=== PATIENT | female | born 1950 | race Caucasian/White ===

== ENCOUNTER 2024-03-18 05:22 | Observation (INO) | payer OTHER ==
[2024-03-14 11:29] LABS: Absolute Eosinophils 0.1 K/uL (0-0.5); Absolute Lymphocytes (CBC) 2.2 K/uL (0.7-4.9); Absolute Monocytes 0.5 K/uL (0.1-1.3); Absolute Neutrophil 3.6 K/uL (1.8-8.0); Basophils % 0.8 % (0-1.3); Eosinophils % 2.1 % (0-4.4); Hematocrit 35.2 % (36.0-45.0); Hemoglobin 11.7 g/dL (12.0-15.0); MCH 30.8 pg (27.0-35.0); MCHC 33.4 g/dL (32.0-36.0); MCV 92.3 fL (80-100); MPV 7.8 fL (7.6-11.3); Monocytes % 7.4 % (3.3-12.3); Neutrophils % 55.7 % (41.7-73.7); Platelets 286 thou/uL (152-406); RBC Red Blood Cell Count 3.81 M/uL (3.86-4.86); Red Cell Distribution Width 12.7 % (12.1-15.2)
[2024-03-14 11:31] LABS: Specific Gravity 1.019 (1.005-1.030); Sqamous Epithelial <5 /HPF (None Seen); Urine Bacteria None Seen /HPF (<20); Urine Bilirubin NEGATIVE (Negative); Urine Blood Negative (Negative); Urine Clarity Turbid (Clear); Urine Color Yellow (Yellow); Urine Culture Reflex Order NOT NEEDED; Urine Glucose NEGATIVE (Negative); Urine Ketones NEGATIVE (Negative); Urine Microscopic Reflex YN ORDER UMIC; Urine Mucus Slight /HPF (None Seen); Urine Nitrite NEGATIVE (Negative); Urine Protein NEGATIVE (Negative); Urine RBC <5 /HPF (None Seen); Urine Urobilinogen Normal (Normal); Urine WBC <5 /HPF (<5); Urine pH 5.5 (5.0-7.0)
[2024-03-14 11:39] LABS: PT Prothrombin Time 11.4 SECONDS (9.4-12.5); PTT, Activated Partial Thromb 29.8 SECONDS (24.3-36.9); Protime INR 1.02
[2024-03-14 11:45] LABS: Albumin 3.7 g/dL (3.4-5.0); Albumin/Globulin Ratio 0.9 (1.1-1.8); Anion Gap 6.7 mEq/L (5.0-15.0); Bilirubin Total 0.7 mg/dL (0.2-1.0); Globulin 4.1 g/dL (2.3-3.5); Potassium 3.7 mEq/L (3.5-5.1); Protein, Total 7.8 g/dL (6.4-8.2)
--- NOTE | 2024-03-14 12:41 | RAD REPORT ---
EXAM DESCRIPTION: RAD - Chest Pa And Lat (2 Views) - 03/14/2024 12:36 pm CLINICAL HISTORY: pre op for knee areplacement Chest pain. COMPARISON: Chest Pa And Lat (2 Views) dated 01/12/2021; Chest Pa And Lat (2 Views) dated 09/14/2017; CHEST SINGLE VIEW dated 12/04/2013; CHEST SINGLE VIEW dated 11/28/2013 TECHNIQUE: PA and lateral views of the chest were obtained. FINDINGS: The lungs are hyperexpanded compatible with COPD. The heart is upper limit of normal in si ze. No fracture or aggressive bony process. Large hiatal hernia. IMPRESSION: COPD without acute process identified. Large hiatal hernia. The USPSTF recommends annual screening for lung cancer with low-dose CT (LDCT) in adults aged 50 to 8 0 years who have a 20 pack-year smoking history and currently smoke or have quit within the past 15 y ears.
[2024-03-18] MEDS: Ringers Lactate 1,000 ML IV ONE ×2 (05:55→08:00)
[2024-03-18] MEDS: Oxycodone HCl/Acetaminophen 5/325 MG TAB ONE (06:00)
[2024-03-18] MEDS: GABAPENTIN 100 MG CAP ONE (06:00)
[2024-03-18] MEDS: ACETAMINOPHEN 500 MG TAB ONE (06:00)
[2024-03-18] MEDS ORDERED: LIDOCAINE 1% MPF 5 ML VIAL ONE ×2 (06:01→06:05)
[2024-03-18] MEDS ORDERED: propofoL 200 MG/20 ML VIAL IV ONE (06:01)
[2024-03-18] MEDS ORDERED: KETAMINE HCL IN 0.9 % NACL 50 MG/5 ML SYRINGE IV ONE (06:01)
[2024-03-18] MEDS ORDERED: MIDAZOLAM HCL 2 MG/2 ML INJ ONE (06:02)
[2024-03-18] MEDS ORDERED: FENTANYL CITR 100 MCG/2 ML ONE (06:02)
[2024-03-18] MEDS: CELECOXIB 100 MG CAPSULE ONE (06:08)
[2024-03-18] MEDS: EPINEPHRINE 1 MG/ML VIAL ONE (06:10)
[2024-03-18] MEDS: dexAMETHasone 4 MG/ML VIAL ONE (06:10)
[2024-03-18] MEDS: DEXMEDETOMIDINE HCL 200 MCG/2 ML VIAL ONE (06:11)
[2024-03-18] MEDS: BUPIVACAINE 0.25% PF 30 ML VIAL ONE (06:11)
[2024-03-18] MEDS: MAGNESIUM SULFATE 1 gm IVPB 1 GM/100 ML BAG IV ONE (06:11)
[2024-03-18] MEDS: TRANEXAMIC ACID 1,000 MG/10 ML VIAL IV ONE (06:12)
[2024-03-18] MEDS ORDERED: LIDOCAINE 2% MPF 5 ML VIAL ONE (07:23)
[2024-03-18] MEDS: CEFAZOLIN SODIUM 2 GM/VIAL ONE (07:25)
[2024-03-18] MEDS ORDERED: ONDANSETRON 4 MG/2 ML VIAL IV PRN (09:30)
[2024-03-18] MEDS ORDERED: DOCUSATE NA 100 MG CAP PO PRN (09:30)
--- NOTE | 2024-03-18 09:34 | P.BOP ---
Preoperative diagnosis: left knee arthritis Postoperative diagnosis: same Primary procedure: left total knee arthoplasty Estimated blood loss: 100ccs Anesthesia: General Complications: None Transferred to: Recovery Room Condition: Good
[2024-03-18 10:29] VITALS: O2SAT 94
--- NOTE | 2024-03-18 10:33 | OP ---
Date of Procedure: 03/18/2024 Surgeon: Praful Washburn MD Preoperative Diagnosis: Severe left knee arthritis. Postoperative Diagnosis: Severe left knee arthritis. Procedure: Left total knee arthroplasty using the [employer] Vangu[employer] system. Estimated Blood Loss: 100 cc. Complications: There were no complications. Indications For Operation: Ms. Munroe is a 73-year-old female who has been suffering with her left k nee for quite some time. She does have a knee flexion contracture as well as severe pain and has not been responsive to conservative care. X-rays demonstrate severe [id number] changes and multiple o steophytes. Risks, benefits, and alternatives to total knee arthroplasty was discussed with the bruno ent. She states she understands things as presented and wishes to proceed. Description Of Procedure: The patient obtained a block in the holding area. She was then brought to the operating room where general anesthesia was easily obtained by the Anesthesia staff. Following this, a well-padded tourniquet placed on superior left thigh. Left lower extremity was then prepped and draped in the usual sterile fashion for procedure. Following this, the lower extremity was then elevated and exsanguinated. Knee was fully bent and tourniquet was raised. After this, a standard a nterior incision was taken down carefully through skin and soft tissues. Meticulous hemostasis being maintained using Bovie electrocautery. This was followed by the finding of the correct plane to exp ose the extensor mechanism. The extensor mechanism was then marked out and a standard medial parapat ellar arthrotomy was then performed with liberation of approximately 20 cc of rather normal-appearing synovial fluid. After this, the patella was then removed and the medial and lateral menisci were de brided. Multiple osteophytes were removed from the patella as well as diffusely throughout the knee. After this, a standard intramedullary alignment guide was then placed. Distal cut was made. It wa s then measured and final femoral cut was made. ACL and PCL being removed. After this, attention wa s then turned to the tibia. She does have a very large on the medial aspect of the knee. The tibia was cut, slightly more tibia was removed than standard. It was then sized using a ___ sizing guide. After this, the trial tibia and femur were then placed with a size 10 poly. It co mes to full extension, however, it is a little bit tight, therefore the tibia was recut another 4 mm, which now comes to full extension without difficulty. Appears to be well balanced and aligned. Aft er this, attention was then turned to the patella. It was calipered and cut. The trial patellar but ton was placed. The patella appears to track ideally. After this, the trial components were removed and the box was cut as well as punching of the tibia. All of the components were then cemented in p lace with the exception of the polyethylene. The trial 12 polyethylene was placed as the cement hard ened. The size 12 actually appeared to do a little better than 10 as far the stability goes with sta bility in both flexion and extension therefore the size 12 was used over the size 10. The wound was copiously irrigated and locking bar was placed. After placement of the final polyethylene, it was ag ain irrigated and the extensor mechanism repaired back in a watertight fashion using Ethibond sutures . It was again irrigated and skin was closed using Vicryl sutures followed by amina. The patient was then placed in a well-padded sterile dressing, awakened, and taken to the recovery room in good c ondition. There were no complications. SE/MODL Voice ID: [id number] Report ID: [id number]
[2024-03-18 11:05] VITALS: BMI 31.8
[2024-03-18] MEDS: HYDROCODONE/APAP 7.5/325 MG TAB PO PRN (12:43)
--- OUTSIDE RECORDS SUMMARY | 2024-03-18 14:42 | XMS REPORT | Continuity of Care Document ---
Author Name Unknown Address [address] [facility] [address] [place] [address] [facility] Address [address] 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 Role Phone Mukesh Stone Primary Care Physician [phone] Maribeth Caal Attending Clinician Unavailable Caesar Newton MD Attending Clinician [phone] KRISTOPHER VELÁZQUEZ Attending Clinician Unavailable RENETTA MEZA Attending Clinician UnavailRENETTA Ko Attending Clinician UnavailKristopher Raygoza MD Attending Clinician [phone] Renetta Meza MD Attending Clinician [phone], [facility] Attending Clinician Unavailable Duane De León Attending Clinician [phone] Doctor Unassigned, [place] Attending Clinician U DUANE Andujar Attending Clinician Unavailable UNKNOWN, ATTENDING Attending Clinician Unavailab Mukesh Harrison Attending Clinician [phone] CHAD MEJIA Attending Clinician Unavailable Chad Mejia MD Attending Clinician [phone] CARIE COY Admitting Clinician Unavailable Payers Payer Name Policy Type Policy Number Effective Date Expirati on Date Source Problems Condition Name Condition Details Condition Category Status Onset Date Resolution Date Last Treatment Date Treating Clinician Comments Source Shortness of breath Shortness of breath Disease Active 08-09 00:00: 00 [facility] Essential hypertensi on Essential hypertensi on Disease Active 08-09 00:00: 00 [facility] Mixed hyperlipid emia Mixed hyperlipid emia Disease Active 08-09 00:00: 00 [facility] Preoperati ve cardiovasc ular examinatio n Preoperati ve cardiovasc ular examinatio n Disease Active 08-07 00:00: 00 [facility] Obesity (BMI 30-39.9) Obesity (BMI 30-39.9) Disease Active 11-01 00:00: 00 [facility] Allergies, Adverse Reactions, Alerts Allergy Name Allergy Type Status Severity Reaction(s) Onset Date Inactive Date Treating Clinician Comments Source NO KNOWN ALLERGIE S Drug Class Active [facility] Social History Social Habit Start Date Stop Date Quantity Comments Source Gender identity [facility] Sexual orientation U [facility] Alcohol intake 2023-08-03 00:00:00 2023-08-03 00:00:00 0 /d [facility] Alcoholic beverage intake 2023-08-03 00:00:00 2023-08-03 00:00:00 0 /d [facility] History of Social function 2023-03-28 00:00:00 2023-03-28 00:00:00 [facility] Exposure to SARS-CoV-2 (event) 2022-12-04 00:00:00 2022-12-14 10:34:00 Not sure [facility] Sex assigned at 1950 00:00:00 1950 00:00:00 [facility] Smoking Status Start Date Stop Date Source Never smoked tobacco [facility] Medications Ordered Medication Name Filled Medication Name Start Date Stop Date Current Medication? Ordering Clinician Indication Dosage Frequency Signature (SIG) Comments Components Source atorvastati n 40 mg tablet 08-09 00:00: 00 Yes [id number] 40mg Take 1 tablet by mouth at bedtime. [facility] losartan 50 mg tablet 08-07 15:37: 14 08-07 00:00 :00 No 50mg Take 1 tablet by mouth in the morning. [facility] losartan-hy drochloroth iazide 100-25 mg per tablet 08-07 15:35: 59 08-07 00:00 :00 No 1{tbl} Take 1 tablet by mouth in the morning. [facility] metoprolol tartrate 50 mg tablet 08-07 15:32: 01 Yes 50mg Take 1 tablet by mouth in the morning. [facility] amLODIPine 5 mg tablet 08-07 15:32: 01 Yes 5mg Take 1 tablet by mouth in the morning and 1 tablet in the evening. [facility] losartan-hy drochloroth iazide 100-25 mg per tablet 08-07 00:00: 00 08-07 05:59 :00 No [id number] 1{tbl} Take 1 tablet by mouth in the morning. [facility] meloxicam 7.5 mg tablet 518 00:00: 00 Yes [id number] 7.5mg Take 1 tablet by mouth in the morning. [facility] methylPREDN ISolone (MEDROL, AWA,) 4 mg tablets 3-16 00:00: 00 Yes [id number] 84mg Take 21 tablets by mouth SEE-INSTRU CTIONS. follow package directions [facility] sodium hyaluronate (viscosup) (ORTHOVISC) injection 30 mg 11-18 14:30: 00 11-18 14:20 :00 No [id number] 9109 30mg [facility] DULoxetine 60 mg capsule 08-12 09:20: 59 Yes 60mg Take 60 mg by mouth daily. [facility] metoprolol tartrate 50 mg tablet 08-12 09:20: 59 Yes 50mg Take 50 mg by mouth 2 (two) times daily. [facility] omeprazole 40 mg capsule 08-12 09:20: 59 Yes 40mg Take 40 mg by mouth daily. [facility] losartan-hy drochloroth iazide 100-25 mg per tablet 1-14 09:20: 59 Yes 1{tbl} Take 1 tablet by mouth daily. [facility] clorazepate 3.75 mg tablet 11-01 14:16: 52 Yes 3.75mg Take 3.75 mg by mouth every 4 (four) hours as needed. [facility] alendronate 70 mg tablet 11-01 00:00: 00 08-07 00:00 :00 No [id number] 70mg Take 1 tablet by mouth weekly. [facility] Vital Signs Vital Name Observation Time Observation Value Comments [facility] Systolic blood pressure 2023-08-07 21:03:00 168 mm[Hg] [facility] Diastolic blood pressure 2023-08-07 21:03:00 81 mm[Hg] [facility] Heart rate 2023-08-07 21:03:00 81 /min [facility] Oxygen saturation in Arterial blood by Pulse oximetry 2023-08-07 21:03:00 94 /min [facility] Body temperature 2023-08-07 21:00:00 36.33 Hetal [facility] Respiratory rate 2023-08-07 21:00:00 20 /min [facility] Body height 2023-08-07 21:00:00 162.6 cm [facility] Body weight 2023-08-07 21:00:00 100.699 kg [facility] BMI 2023-08-07 21:00:00 38.11 kg/m2 [facility] Body height 2023-08-03 16:01:00 162.6 cm [facility] Body weight 2023-08-03 16:01:00 105.688 kg [facility] BMI 2023-08-03 16:01:00 39.99 kg/m2 [facility] Systolic blood pressure 2023-03-28 19:29:00 152 mm[Hg] [facility] Diastolic blood pressure 2023-03-28 19:29:00 77 mm[Hg] [facility] Heart rate 2023-03-28 19:28:00 81 /min [facility] Body height 2023-03-28 19:28:00 167.6 cm [facility] Body weight 2023-03-28 19:28:00 102.059 [address] [facility] BMI 2023-03-28 19:28:00 36.32 kg/m2 [facility] Oxygen saturation in Arterial blood by Pulse oximetry 2023-03-28 19:28:00 96 /min [facility] Systolic blood pressure 2022-12-14 15:55:00 152 mm[Hg] [facility] Diastolic blood pressure 2022-12-14 15:55:00 72 mm[Hg] [facility] Heart rate 2022-12-14 15:55:00 90 /min [facility] Body height 2022-12-14 15:55:00 167.6 cm [facility] Body weight 2022-12-14 15:55:00 105.235 [address] [facility] BMI 2022-12-14 15:55:00 37.45 kg/m2 [facility] Oxygen saturation in Arterial blood by Pulse oximetry 2022-12-14 15:55:00 90 /min [facility] Systolic blood pressure 2022-10-12 16:18:00 133 mm[Hg] [facility] Diastolic blood pressure 2022-10-12 16:18:00 79 mm[Hg] [facility] Heart rate 2022-10-12 16:18:00 84 /min [facility] Body height 2022-10-12 16:18:00 167.6 cm [facility] Body weight 2022-10-12 16:18:00 65.772 [address] [facility] BMI 2022-10-12 16:18:00 23.40 kg/m2 [facility] Systolic blood pressure 2021-11-18 14:19:00 151 mm[Hg] [facility] Diastolic blood pressure 2021-11-18 14:19:00 87 mm[Hg] [facility] Heart rate 2021-11-18 14:19:00 77 /min [facility] Body height 2021-11-18 14:10:00 167.6 cm [facility] Body weight 2021-11-18 14:10:00 101.606 kg [facility] BMI 2021-11-18 14:10:00 36.15 kg/m2 [facility] Oxygen saturation in Arterial blood by Pulse oximetry 2021-11-18 14:10:00 95 /min [facility] Procedures Procedure Date / Time Performed Performing Clinician Source TRANSTHORACIC ECHO (TTE) COMPLETE 2023-08-08 17:49:47 Jennifer [facility] BASIC METABOLIC PANEL (NA, K, CL, CO2, GLUCOSE, BUN, CREATININE, CA) 2023-08-08 17:44:00 Jennifer Kristopher [facility] LIPID PANEL (07623)(TOTAL CHOLESTEROL, TRIGLYCERIDES, HDL) 2023-08-08 17:44:00 Jennifer Kristopher [facility] CBC WITHOUT DIFF 2023-08-08 17:44:00 [facility]-B[facility] 2023-08-08 17:44:00 Jennifer Kristopher [facility] ASSIGNMENT OF BENEFITS 2022-12-14 15:36:46 Docto r Unassigned, [place] [facility] Encounters Start Date/Time End Date/Time Encounter Type Admission Type Attending Clinicians Care Facility Care Department Encounter ID Source 2024-02-22 11:14:[address] [facility] [id number] [facility] 2024-02-20 13:39:00 Outpatient AvocaMaribeth carcamo [facility] [id number] [facility] 2024-02-18 09:48:[address] [facility] [id number] [facility] 2023-12-13 14:43:[address] [facility] [id number] [facility] 2023-12-11 10:16:[address] Caal [facility] [id number] [facility] 2021-08-24 14:26:43 [facility] [id number] [facility] 2024-02-08 00:00:00 2024-02-15 15:30:06 Telephone Caesar Newton [facility] MEDICAL OFFICE BUILDING 1.2.840.114 350.1.13.10 4.2.7.2.686 [id number] [facility] 2023-11-06 10:30:00 2023-11-06 10:30:00 Outpatient KRISTOPHER SIERRA [facility] [id number] [facility] 2023-08-30 11:00:00 2023-08-30 11:00:00 Outpatient RENETTA DANIELS [facility] [id number] [facility] 2023-08-17 00:00:00 2023-08-17 00:00:00 Telephone Velázquez [facility] BUILDING 1.2.840.114 350.1.13.10 4.2.7.2.686 [id number] [facility] 2023-08-16 00:00:00 2023-08-16 00:00:00 [facility] 1..840.114 350.1.13.10 4.2.7.2.686 [id number] [facility] 2023-08-09 00:00:00 2023-08-09 00:00:00 Telephone Jennifer [facility] BUILDING 1.2.840.114 350.1.13.10 4.2.7.2.686 [id number] [facility] 2023-08-08 10:57:05 2023-08-08 23:59:00 Out[facility] [id number] [facility] 2023-08-08 10:57:05 2023-08-08 23:59:00 Hospital Encounter Jennifer [facility]IO NAL BUILDING 1.2.840.114 350.1.13.10 4.2.7.2.686 [id number] [facility] 2023-08-08 13:00:00 2023-08-08 13:00:00 Electrolytic Etcher Visit 2, [facility] Jennifer [facility] NAL BUILDING 1.2.840.114 350.1.13.10 4.2.7.2.686 [id number] [facility] 2023-08-07 15:00:00 2023-08-07 15:46:40 Outpatient R KRISTOPHER VELÁZQUEZ [facility] [id number] [facility] 2023-08-07 15:00:00 2023-08-07 15:46:40 Office Visit Jennifer [facility] BUILDING 1.2.840.114 350.1.13.10 4.2.7.2.686 [id number] [facility] 2023-08-03 10:15:00 2023-08-03 10:30:03 Outpatient R RENETTA MEZA [facility] [id number] [facility] 2023-08-03 10:15:00 2023-08-03 10:30:03 Office Visit Renetta Meza [facility] 1.2.840.114 350.1.13.10 4.2.7.2.686 [id number] [facility] 2023-07-12 13:45:00 2023-07-12 13:45:00 Outpatient R JEREMIAH MEZAMISTY BURKSMEZA, RENETTA [facility] [id number] [facility] 2023-03-30 13:00:00 2023-03-30 13:00:00 Outpatient R KRISTOPHER VELÁZQUEZ [facility] [id number] [facility] 2023-03-28 14:15:00 2023-03-28 14:49:19 Outpatient R RENETTA MEZA [facility] [id number] [facility] 2023-03-28 14:15:00 2023-03-28 14:49:19 Office Visit Renetta Meza [facility] 1.2.840.114 350.1.13.10 4.2.7.2.686 [id number] [facility] 2022-12-14 11:00:00 2022-12-14 11:15:00 Office Visit Duane Starkey Craig [facility] 1.2.840.114 350.1.13.10 4.2.7.2.686 [id number] [facility] 2022-12-14 11:00:00 2022-12-14 11:00:00 Outpatient R RENETTA MEZA [facility] [id number] [facility] 2022-12-14 00:00:00 2022-12-14 00:00:00 Orders Only Doctor Unassigned, [place] [facility] 1.2.840.114 350.1.13.10 4.2.7.2.686 [id number] [facility] 2022-10-12 11:38:06 2022-10-12 23:59:00 Outpatient R DUANE STARKEY [facility] [id number] [facility] 2022-10-12 11:15:00 2022-10-12 11:30:00 Office Visit Starkey, [facility] 1.2.840.114 350.1.13.10 4.2.7.2.686 [id number] [facility] 2022-08-10 10:42:24 2022-08-10 23:59:00 Outpatient MELODY JIMENEZ [facility] [id number] [facility] 2022-07-14 00:00:00 2022-07-14 00:00:00 Telephone Renetta Meza [facility] 1.2.840.114 350.1.13.10 4.2.7.2.686 [id number] [facility] 2021-12-16 00:00:00 2021-12-16 00:00:00 Telephone Renetta Meza [facility] 1.2.840.114 350.1.13.10 4.2.7.2.686 [id number] [facility] 2021-12-02 09:15:00 2021-12-02 09:15:00 Outpatient R RENETTA MEZA [facility] [id number] [facility] 2021-11-18 09:15:00 2021-11-18 09:57:53 Outpatient DUANE JULIEN [facility] [id number] [facility] 2021-11-18 09:15:00 2021-11-18 09:30:00 Office Visit Duane Starkey [facility] 1.2.840.114 350.1.13.10 4.2.7.2.686 [id number] [facility] 2021-11-18 09:15:00 2021-11-18 09:15:00 Outpatient R DUANE STARKEY [facility] [id number] [facility] 2021-11-11 08:45:00 2021-11-11 09:10:58 [facility] 1.2.840.114 350.1.13.10 4.2.7.2.686 [id number] [facility] 2021-11-11 08:45:00 2021-11-11 09:10:58 Outpatient DUANE JULIEN [facility] [id number] [facility] 2021-11-11 08:45:00 2021-11-11 08:45:00 Outpatient DUANE JULIEN [facility] [id number] [facility] 2021-11-03 08:00:00 2021-11-03 08:28:49 Outpatient DUANE JULIEN [facility] [id number] [facility] 2021-11-03 08:00:00 2021-11-03 08:28:49 Office Visit Clarence [facility] [place]?[facility] MEDICAL OFFICE BUILDING 1..840.114 350.1.13.10 4.2.7.2.686 [id number] [facility] 2021-11-03 08:00:00 2021-11-03 08:28:49 Outpatient DUANE JULIEN [facility] [id number] [facility] 2021-11-01 14:15:00 2021-11-01 14:15:00 Outpatient DUANE JULIEN [facility] [id number] [facility] 2021-10-24 00:00:00 2021-10-24 00:00:00 Telephone Clarence [facility] [place] 1.2.840.114 350.1.13.10 4.2.7.2.686 [id number] [facility] 2021-10-24 00:00:00 2021-10-24 00:00:00 Telephone [facility] [place] 1.840.114 350.1.13.10 4.2.7.2.686 [id number] [facility] 2021-10-12 14:15:00 2021-10-12 14:54:34 Outpatient R RENETTA MEZA [facility] [id number] [facility] 2021-10-12 14:15:00 2021-10-12 14:54:34 Office Visit Renetta Meza [facility] MED[facility] OFFICE BUILDING 1.84.114 350.1.13.10 4.2.7.2.686 [id number] [facility] 2021-10-12 00:00:00 2021-10-12 00:00:00 Orders Only Doctor Unassigned, [place] [facility] 1.84.114 350.1.13.10 4.2.7.2.686 [id number] [facility] 2021-08-12 09:30:00 2021-08-12 23:59:00 Outpatient R RENETTA MEZA [facility] [id number] [facility] 2021-08-12 09:30:00 2021-08-12 23:59:00 [facility] 1.840.114 350.1.13.10 4.2.7.2.686 [id number] [facility] 2021-08-12 09:30:00 2021-08-12 09:59:31 Office Visit Renetta Meza [facility] [place] 1.84.114 350.1.13.10 4.2.7.2.686 [id number] [facility] 2021-08-12 09:30:00 2021-08-12 09:30:00 Outpatient R RENETTA MEZA [facility] [id number] [facility] 2021-08-12 00:00:00 2021-08-12 00:00:00 Orders Only Doctor Unassigned, [place] [facility] 1.2.840.114 350.1.13.10 4.2.7.2.686 [id number] [facility] 2021-07-29 00:00:00 2021-07-29 00:00:00 Letter (Out) Mukesh Stone [facility] 1.2.840.114 350.1.13.10 4.2.7.2.686 [id number] [facility] 2021-07-20 00:00:00 2021-07-20 00:00:00 Orders Only Doctor Unassigned, [place] [facility] 1.2.840.114 350.1.13.10 4.2.7.2.686 [id number] [facility] 2019-11-11 09:30:00 2019-11-11 09:30:00 Outpatient R [facility] [id number] [facility] 2019-11-11 07:54:23 2019-11-11 08:24:23 Telemedici ne Visit [facility] 1.2.840.114 350.1.13.10 4.2.7.2.686 [id number] [facility] 2019-11-11 00:00:00 2019-11-11 00:00:00 Telephone [facility] 1.2.840.114 350.1.13.10 4.2.7.2.686 [id number] [facility] Results Test Description Test Time Test Comments Results Result Co mments Source [facility] Notes Date/Time Note Provider Source 2024-02-08 13:13:36 [facility] sent referral to Dr. Newton sent to HIM [facility] 2023-08-17 16:49:00 Images from the original note were not included. Patient notified of results. She verbalized understanding of results/recommendations via teach back. No further questions or concerns at this time. Kristopher Velázquez MD P Cardiology Nurse Please let Ms.Shelia Munroe know that I have reviewed the results of the echo which showed normal systolic (aka pumping) function of the heart. The pressure in the pulmonary artery is mildly elevated. No specific intervention is needed as of now. I see that she has an appointment with me on 11/06/2023, we'll discuss further management after re-evaluation. MILL OPERATOR Tiffany Mcnally RN [facility] 2023-08-17 13:26:54 Bertha Munroe is a 73 year old female Patient returning call to Cheri, please advise. MILL OPERATOR Shania Zaidi [facility] 2023-08-17 13:20:25 Images from the original note were not included. Attempted to contact patient with results/recommendations. LV for patient to return call to [phone]. Kristopher Velázquez MD P Cardiology Nurse Please let Ms.Shelia Munroe know that I have reviewed the results of the echo which showed normal systolic (aka pumping) function of the heart. The pressure in the pulmonary artery is mildly elevated. No specific intervention is needed as of now. I see that she has an appointment with me on 11/06/2023, we'll discuss further management after re-evaluation. MILL OPERATOR [facility] 2023-08-16 10:10:29 Sent an email to Karrie to let her know she wanted to cancel her surgery at this time. Charlene Farah 08/16/2023 10:10 AM [facility] 2023-08-16 09:21:38 Patient is requesting to cancel her surgery that is scheduled on 08/29/2023. She is not able to do it at this time. [facility] 2023-08-09 10:43:39 Images from the original note were not included. Called patient for results patient verbalized understanding with no further questions will send the atorvastatin to in [place] for the patient. Kristopher Velázquez MD P Cardiology Nurse Please let Ms. Bertha Munroe know that the cholesterol level is elevated. I recommend starting a cholesterol lowering medicine (atorvastatin 40 mg daily). Serum calcium is also elevated (a chronic abnormality), please discuss this finding with your PCP. [facility] 2023-08-08 13:00:00 Images from the original note were not included. Venipuncture collection performed by clean technique on the left anticubitus. Total of 1 attempts were made. Slight pressure and a bandage/dressing were applied to the site(s). The patient experienced no complications. The following specimens were processed according to instructions and sent to [facility] laboratories per lab order on 08/08/2023 : LT BLUE SST 1 RED LAV 1 PPT DK GREEN (LiHep) DK GREEN (SodH) HILL DK BLUE (K2) DK BLUE (S) ACD Blood Culture NIPT/NTD [facility] 2023-08-08 13:00:00 Addended by: KRISTOPHER MORROW on: 08/09/2023 09:21 AM Modules accepted: Orders [facility]
[2024-03-18] MEDS: CEFAZOLIN 1 GM in NA CHLORIDE 0.9% 50 ML IVPB SCH (18:27)
[2024-03-18] MEDS: AMLODIPINE 5 MG TAB PO SCH (20:58)
[2024-03-18] MEDS: clonazePAM 0.5 MG TAB PO SCH (20:58)
[2024-03-18] MEDS: METOPROLOL TAR 50 MG TAB PO SCH (20:59)
[2024-03-19 05:40] LABS: Hematocrit 30.3 % (36.0-45.0); Hemoglobin 10.4 g/dL (12.0-15.0)
[2024-03-19] MEDS: ENOXAPARIN 30 MG/0.3 ML SQ SCH (06:48)
--- NOTE | 2024-03-19 08:09 | P.PN ---
Date of Service: 03/19/24 subjective Status post left total knee arthroplasty 03/18 pain controlled with as needed analgesics, PT to eval for DME needs Review of Systems 10 point system negative unless listed per HPI Physical Examination - Physical Exam General: Alert, In no apparent distress, afebrile HEENT: Atraumatic, Normocephalic Neck: Supple, 2+ carotid pulse no bruit Respiratory: Clear to auscultation bilaterally, Normal air movement Cardiovascular: Normal pulses, Regular rate/rhythm Capillary refill: <2 Seconds Gastrointestinal: Normal bowel sounds, Musculoskeletal: No swelling, No contractures Integumentary: No breakdown, No significant lesion Neurological: Normal speech, Normal strength at 5/5 x4 extr, Cranial nerves 3-12 intact Assessment and Plan - Plan Past medical history Hypertension Anxiety Resume appropriate home meds Assessment plan left total knee arthoplasty Arthritis the left knee 03/18 Status post left total knee [place] Full code diet Diabetic DVT scd Dispostion, independent prior to admission, PT to eval DME needs Discharge Plan: Home - Advance Directives Does patient have a Living Will: No Does patient have a Durable POA for Healthcare: No - Code Status/Comfort Care Code Status: Full Code Critical Care: No Time Spent Managing Pts Care (In Minutes): 35
--- NOTE | 2024-03-19 08:13 | P.DS ---
Admission Date: 03/18/24 Discharge Date: 03/19/24 Disposition: DC HOME/HOME HEALTH CARE Brief History of Present Illness: 73-year-old female with a past medical history of anxiety, hypertension, presents for left knee osteoarthritis, is status post left total knee arthroplasty by Dr. Washburn. Evaluated by physical therapy for DME needs, she is tolerating diet, pain controlled with as needed analgesia, plan to discharge home, follow-up with orthopedic surgery after discharge, follow-up with PCP 1 to 2-week - Physical Exam General: Alert, In no apparent distress, afebrile HEENT: Atraumatic, Normocephalic Neck: Supple, 2+ carotid pulse no bruit Respiratory: Clear to auscultation bilaterally, Normal air movement Cardiovascular: Normal pulses, Regular rate/rhythm Capillary refill: <2 Seconds Gastrointestinal: Normal bowel sounds, Musculoskeletal: No swelling, No contractures, arthritis left knee Integumentary: No breakdown, No significant lesion Neurological: Normal speech, Normal strength at 5/5 x4 extr, Cranial nerves 3-12 intact Hospital Course: 73-year-old female with a past medical history of anxiety, hypertension, presents for left knee osteoarthritis, is status post left total knee arthroplasty by Dr. Washburn. Evaluated by physical therapy for DME needs, she is tolerating diet, pain controlled with as needed analgesia, plan to discharge home, follow-up with orthopedic surgery after discharge, follow-up with PCP 1 to 2-week, discharged home with home health Assessment presents for left knee osteoarthritis, 03/18 status post left total knee arthroplasty by Dr. Washburn. No driving or operating heavy equipment while on narcotics Follow-up with Dr. Washburn after discharge Discharge home on anticoagulation Lovenox daily for 21 days to prevent DVT Anxiety, hypertension Continue home medicines as previously prescribed GOAL: Clear understanding of disease process INSTRUCTIONS: Physician Discharge Instructions: -Follow-up with PCP in 1 to 2 weeks -Please call Dr. Brewer at [phone] if any questions regarding hospital stay -Please call nursing station at [phone] if any nursing or medication questions -Return to the emergency room if symptoms worsen Diet: ADA, low sodium Activity: Fall precaution Vital Signs/Physical Exam: Temp Pulse Resp BP Pulse Ox 96.9 F 70 16 126/68 93 03/19/24 04:00 03/19/24 04:00 03/19/24 04:00 03/19/24 04:00 03/19/24 04:00 Laboratory Data at Discharge: WBC 6.50 thou/uL (4.3-10.9) 03/14/24 11:18 Hgb 10.4 g/dL (12.0-15.0) L 03/19/24 05:04 Hct 30.3 % (36.0-45.0) L 03/19/24 05:04 Plt Count 286 thou/uL (152-406) 03/14/24 11:18 PT 11.4 SECONDS (9.4-12.5) 03/14/24 11:18 INR 1.02 03/14/24 11:18 APTT 29.8 SECONDS (24.3-36.9) 03/14/24 11:18 Sodium 137 mEq/L (136-145) 03/14/24 11:18 Potassium 3.7 mEq/L (3.5-5.1) 03/14/24 11:18 BUN 23 mg/dL (7-18) H 03/14/24 11:18 Creatinine 1.21 mg/dL (0.55-1.02) H 03/14/24 11:18 Glucose 109 mg/dL (74-106) H 03/14/24 11:18 Total Bilirubin 0.7 mg/dL (0.2-1.0) 03/14/24 11:18 AST 13 U/L (15-37) L 03/14/24 11:18 ALT 25 U/L (13-56) 03/14/24 11:18 Alkaline Phosphatase 72 U/L (45-117) 03/14/24 11:18 Home Medications: Duloxetine HCl [Cymbalta] 60 mg PO DAILY 11/28/13 Metoprolol Tartrate [Lopressor*] 50 mg PO BID 11/28/13 Omeprazole [Prilosec] 40 mg PO DAILY 11/28/13 Amlodipine [Norvasc] 5 mg PO BID 03/14/24 Losartan Potassium 25 mg PO DAILY 03/14/24 clonazePAM [Clonazepam] 0.5 mg PO BEDTIME 03/14/24 Physician Discharge Instructions: Home health arranged with: [facility]) M:[phone] [place] P:[phone] F:[phone] Diet: AHA Activity: Fall precautions Followup: Danna Waldrop MD [Primary Care Provider] - Time spent managing pt's care (in minutes): 45
[2024-03-19] MEDS ORDERED: HOME MED 1 EA UNK (Omeprazole [Prilosec] 40 MG Capsule.Dr) PO SCH (09:00)
[2024-03-19] MEDS ORDERED: HOME MED 1 EA UNK (Losartan Potassium [Losartan Potassium] 25 MG Tablet) PO SCH (09:00)
[2024-03-19] MEDS ORDERED: HOME MED 1 EA UNK (Duloxetine Hcl [Cymbalta] 60 MG Capsule.Dr) PO SCH (09:00)
[2024-03-19] MEDS: DULOXETINE 30 MG CAP PO SCH (09:57)
[2024-03-19] MEDS: LOSARTAN POTASSIUM 50 MG TABLET PO SCH (09:57)
[2024-03-19] MEDS: PANTOPRAZOLE 40MG TABLET PO SCH (10:14)
[2024-03-19 12:27] VITALS: BP 120/63; TEMP 97.7
--- NOTE | 2024-03-19 17:04 | EKG ---
Test Date: 2024-03-14 Test Time: 11:12:43 Denture Finisher: NATHEN MEASUREMENT RESULTS: Intervals: Rate: 61 WA: 174 QRSD: 114 QT: 400 QTc: 402 [place]: P: 52 WA: 174 QRS: 23 T: 20 INTERPRETIVE STATEMENTS: Normal sinus rhythm Normal ECG Compared to ECG 11/28/2013 09:55:38 No significant changes Electronically Signed On 03-19-24 16:59:47 CDT by Jamey Roca
== END 2024-03-19 13:37 | disposition home health service (06) ==
LOC: OR 05:22 → 2ND 09:30
PROVIDERS: ADMIT Orthopaedic Surgery; ATTEND Orthopaedic Surgery
PROC: 0SRD0J9 Replacement of Left Knee Joint with Synthetic Substitute, Cemented, Open Approach (ICD-10-PCS; principal; 2024-03-18 07:00)
DX: M17.12 Unilateral primary osteoarthritis, left knee (principal); F41.9 Anxiety disorder, unspecified; I10 Essential (primary) hypertension
CPT/HCPCS: 93005; 85025; 81001; 36415 ×2; 85610; 88305; 88311; 85730; 85018; 85014; 80053; 71046; 97116 ×4; 97139; 97161; 97530 ×2; 94010; 27447; C1776 ×3; J3475; J2704; J1100; J2001 ×3; J1650; J2250; J3010; J0171; J7120 ×2; J0690 ×3; 88304; G0378; G0379

== ENCOUNTER 2025-04-21 12:18 | Inpatient (IN) | payer OTHER ==
--- OUTSIDE RECORDS SUMMARY | 2025-04-21 12:23 | XMS REPORT | Continuity of Care Document ---
Author Name Unknown Address [address] [place] [address]. [address] [place] [address] [facility] Address [address] [facility]. [address] [place] [address] Care Team Providers Care Lamp Cleaner [address] Light Name Role Phone Mukesh Stone Primary Care Physician [phone] Maribeth Caal Attending Clinician Unavailable Caesar Newton MD Attending Clinician [phone] KRISTOPHER VELÁZQUEZ Attending Clinician Unavailable RENETTA MEZA Attending Clinician UnavailRENETTA Ko Attending Clinician UnavailKristopher Raygoza MD Attending Clinician [phone] Renetta Meza MD Attending Clinician [phone], [facility] Attending Clinician Unavailable Duane De León Attending Clinician [phone] Doctor Unassigned, [place] Attending Clinician U DUANE Andujar Attending Clinician Unavailable UNKNOWN, ATTENDING Attending Clinician Unavailab Mukesh Harrison Attending Clinician [phone] CHAD MEJIA Attending Clinician Unavailable Chad Mejia MD Attending Clinician [phone] CARIE COY Admitting Clinician Unavailable Payers Payer Name Policy Type Policy Number Effective Date Expirati on Date Source Problems Condition Name Condition Details Condition Category Status Onset Date Resolution Date Last Treatment Date Treating Clinician Comments Source Shortness of breath Shortness of breath Disease Active 08-09 00:00: 00 [facility] Essential hypertensi on Essential hypertensi on Disease Active 08-09 00:00: 00 [facility] Mixed hyperlipid emia Mixed hyperlipid emia Disease Active 08-09 00:00: 00 [facility] Preoperati ve cardiovasc ular examinatio n Preoperati ve cardiovasc ular examinatio n Disease Active 08-07 00:00: 00 [facility] Obesity (BMI 30-39.9) Obesity (BMI 30-39.9) Disease Active 11-01 00:00: 00 [facility] Allergies, Adverse Reactions, Alerts Allergy Name Allergy Type Status Severity Reaction(s) Onset Date Inactive Date Treating Clinician Comments Source NO KNOWN ALLERGIE S Drug Class Active [facility] Social History Social Habit Start Date Stop Date Quantity Comments Source Gender identity [facility] Sexual orientation U [facility] Alcohol intake 2023-08-03 00:00:00 2023-08-03 00:00:00 0 /d [facility] Alcoholic beverage intake 2023-08-03 00:00:00 2023-08-03 00:00:00 0 /d [facility] History of Social function 2023-03-28 00:00:00 2023-03-28 00:00:00 [facility] Exposure to SARS-CoV-2 (event) 2022-12-04 00:00:00 2022-12-14 10:34:00 Not sure [facility] Sex assigned at 1950 00:00:00 1950 00:00:00 [facility] Smoking Status Start Date Stop Date Source Never smoked tobacco [facility] Medications Ordered Medication Name Filled Medication Name Start Date Stop Date Current Medication? Ordering Clinician Indication Dosage Frequency Signature (SIG) Comments Components Source atorvastati n 40 mg tablet 08-09 00:00: 00 Yes [id number] 40mg Take 1 tablet by mouth at bedtime. [facility] losartan 50 mg tablet 08-07 15:37: 14 08-07 00:00 :00 No 50mg Take 1 tablet by mouth in the morning. [facility] losartan-hy drochloroth iazide 100-25 mg per tablet 08-07 15:35: 59 08-07 00:00 :00 No 1{tbl} Take 1 tablet by mouth in the morning. [facility] metoprolol tartrate 50 mg tablet 08-07 15:32: 01 Yes 50mg Take 1 tablet by mouth in the morning. [facility] amLODIPine 5 mg tablet 08-07 15:32: 01 Yes 5mg Take 1 tablet by mouth in the morning and 1 tablet in the evening. [facility] losartan-hy drochloroth iazide 100-25 mg per tablet 08-07 00:00: 00 08-07 05:59 :00 No [id number] 1{tbl} Take 1 tablet by mouth in the morning. [facility] meloxicam 7.5 mg tablet 518 00:00: 00 Yes [id number] 7.5mg Take 1 tablet by mouth in the morning. [facility] methylPREDN ISolone (MEDROL, AWA,) 4 mg tablets 3-16 00:00: 00 Yes [id number] 84mg Take 21 tablets by mouth SEE-INSTRU CTIONS. follow package directions [facility] sodium hyaluronate (viscosup) (ORTHOVISC) injection 30 mg 11-18 14:30: 00 11-18 14:20 :00 No [id number] 9109 30mg [facility] DULoxetine 60 mg capsule 08-12 09:20: 59 Yes 60mg Take 60 mg by mouth daily. [facility] metoprolol tartrate 50 mg tablet 08-12 09:20: 59 Yes 50mg Take 50 mg by mouth 2 (two) times daily. [facility] omeprazole 40 mg capsule 08-12 09:20: 59 Yes 40mg Take 40 mg by mouth daily. [facility] losartan-hy drochloroth iazide 100-25 mg per tablet 1-14 09:20: 59 Yes 1{tbl} Take 1 tablet by mouth daily. [facility] clorazepate 3.75 mg tablet 11-01 14:16: 52 Yes 3.75mg Take 3.75 mg by mouth every 4 (four) hours as needed. [facility] alendronate 70 mg tablet 11-01 00:00: 00 08-07 00:00 :00 No [id number] 70mg Take 1 tablet by mouth weekly. [facility] Vital Signs Vital Name Observation Time Observation Value Comments [facility] Systolic blood pressure 2023-08-07 21:03:00 168 mm[Hg] [facility] Diastolic blood pressure 2023-08-07 21:03:00 81 mm[Hg] [facility] Heart rate 2023-08-07 21:03:00 81 /min [facility] Oxygen saturation in Arterial blood by Pulse oximetry 2023-08-07 21:03:00 94 /min [facility] Body temperature 2023-08-07 21:00:00 36.33 Hetal [facility] Respiratory rate 2023-08-07 21:00:00 20 /min [facility] Body height 2023-08-07 21:00:00 162.6 cm [facility] Body weight 2023-08-07 21:00:00 100.699 kg [facility] BMI 2023-08-07 21:00:00 38.11 kg/m2 [facility] Body height 2023-08-03 16:01:00 162.6 cm [facility] Body weight 2023-08-03 16:01:00 105.688 kg [facility] BMI 2023-08-03 16:01:00 39.99 kg/m2 [facility] Systolic blood pressure 2023-03-28 19:29:00 152 mm[Hg] [facility] Diastolic blood pressure 2023-03-28 19:29:00 77 mm[Hg] [facility] Heart rate 2023-03-28 19:28:00 81 /min [facility] Body height 2023-03-28 19:28:00 167.6 cm [facility] Body weight 2023-03-28 19:28:00 102.059 kg [facility] BMI 2023-03-28 19:28:00 36.32 kg/m2 [facility] Oxygen saturation in Arterial blood by Pulse oximetry 2023-03-28 19:28:00 96 /min [facility] Systolic blood pressure 2022-12-14 15:55:00 152 mm[Hg] [facility] Diastolic blood pressure 2022-12-14 15:55:00 72 mm[Hg] [facility] Heart rate 2022-12-14 15:55:00 90 /min [facility] Body height 2022-12-14 15:55:00 167.6 cm [facility] Body weight 2022-12-14 15:55:00 105.235 kg [facility] BMI 2022-12-14 15:55:00 37.45 kg/m2 [facility] Oxygen saturation in Arterial blood by Pulse oximetry 2022-12-14 15:55:00 90 /min [facility] Systolic blood pressure 2022-10-12 16:18:00 133 mm[Hg] [facility] Diastolic blood pressure 2022-10-12 16:18:00 79 mm[Hg] [facility] Heart rate 2022-10-12 16:18:00 84 /min [facility] Body height 2022-10-12 16:18:00 167.6 cm [facility] Body weight 2022-10-12 16:18:00 65.772 kg [facility] BMI 2022-10-12 16:18:00 23.40 kg/m2 [facility] Systolic blood pressure 2021-11-18 14:19:00 151 mm[Hg] [facility] Diastolic blood pressure 2021-11-18 14:19:00 87 mm[Hg] [facility] Heart rate 2021-11-18 14:19:00 77 /min [facility] Body height 2021-11-18 14:10:00 167.6 cm [facility] Body weight 2021-11-18 14:10:00 101.606 kg [facility] BMI 2021-11-18 14:10:00 36.15 kg/m2 [facility] Oxygen saturation in Arterial blood by Pulse oximetry 2021-11-18 14:10:00 95 /min Arp o [facility] Procedures Procedure Date / Time Performed Performing Clinician Source TRANSTHORACIC ECHO (TTE) COMPLETE 2023-08-08 17:49:47 [facility] BASIC METABOLIC PANEL (NA, K, CL, CO2, GLUCOSE, BUN, CREATININE, CA) 2023-08-08 17:44:00 Jennifer [facility] LIPID PANEL (55144)(TOTAL CHOLESTEROL, TRIGLYCERIDES, HDL) 2023-08-08 17:44:00 Jennifer Kristopher [facility] CBC WITHOUT DIFF 2023-08-08 17:44:00 [facility]-BNP 2023-08-08 17:44:00 Jennifer Kristopher [facility] ASSIGNMENT OF BENEFITS 2022-12-14 15:36:46 Docto r Unassigned, [place] [facility] Encounters Start Date/Time End Date/Time Encounter Type Admission Type Attending Clinicians Care Facility Care Department Encounter ID Source 2024-02-22 11:14:[address] [facility] [id number] [facility] 2024-02-20 13:39:[address] [facility] [id number] [facility] 2024-02-18 09:48:[address] [facility] [id number] [facility] 2023-12-13 14:43:[address] [facility] [id number] [facility] 2023-12-11 10:16:00 [facility] [id number] [facility] 2021-08-24 14:26:43 [facility] [id number] [facility] 2024-02-08 00:00:00 2024-02-15 15:30:06 Telephone Caesar Newton [facility] 1.2.840.114 350.1.13.10 4.2.7.2.686 [id number] [facility] 2023-11-06 10:30:00 2023-11-06 10:30:00 [facility] [id number] [facility] 2023-08-30 11:00:00 2023-08-30 11:00:00 Outpatient RENETTA DANIELS [facility] [id number] [facility] 2023-08-17 00:00:00 2023-08-17 00:00:00 Telephone Jennifer [facility] 1.2.840.114 350.1.13.10 4.2.7.2.686 [id number] [facility] 2023-08-16 00:00:00 2023-08-16 00:00:00 [facility] 1..840.114 350.1.13.10 4.2.7.2.686 [id number] [facility] 2023-08-09 00:00:00 2023-08-09 00:00:00 [facility] 1..840.114 350.1.13.10 4.2.7.2.686 [id number] [facility] 2023-08-08 10:57:05 2023-08-08 23:59:00 Out[facility] [id number] [facility] 2023-08-08 10:57:05 2023-08-08 23:59:00 Hospital [facility] 1.2.840.114 350.1.13.10 4.2.7.2.686 [id number] [facility] 2023-08-08 13:00:00 2023-08-08 13:00:00 Outside Upholsterer Visit 2, [facility] Jennifer [facility] NAL BUILDING 1.2.840.114 350.1.13.10 4.2.7.2.686 [id number] [facility] 2023-08-07 15:00:00 2023-08-07 15:46:40 Outpatient R [facility] [id number] [facility] 2023-08-07 15:00:00 2023-08-07 15:46:40 Office Visit Jennifer [facility] BUILDING 1.2.840.114 350.1.13.10 4.2.7.2.686 [id number] [facility] 2023-08-03 10:15:00 2023-08-03 10:30:03 Outpatient R RENETTA MEZA [facility] [id number] [facility] 2023-08-03 10:15:00 2023-08-03 10:30:03 Office Visit Renetta Meza [facility] 1.2.840.114 350.1.13.10 4.2.7.2.686 [id number] [facility] 2023-07-12 13:45:00 2023-07-12 13:45:00 Outpatient R MEZAJEREMIAH ROLONMISTY BURKSMEZA, RENETTA [facility] [id number] [facility] 2023-03-30 13:00:00 2023-03-30 13:00:00 Outpatient R KRISTOPHER VELÁZQUEZ [facility] [id number] [facility] 2023-03-28 14:15:00 2023-03-28 14:49:19 Outpatient R RENETTA MEZA [facility] [id number] [facility] 2023-03-28 14:15:00 2023-03-28 14:49:19 Office Visit Renetta Meza Ricki [facility] 1.2.840.114 350.1.13.10 4.2.7.2.686 [id number] [facility] 2022-12-14 11:00:00 2022-12-14 11:15:00 Office Visit Duane Starkey Craig [facility] 1.2.840.114 350.1.13.10 4.2.7.2.686 [id number] [facility] 2022-12-14 11:00:00 2022-12-14 11:00:00 Outpatient R RENETTA MEZA [facility] [id number] [facility] 2022-12-14 00:00:00 2022-12-14 00:00:00 Orders Only Doctor Unassigned, [place] [facility] 1.2.840.114 350.1.13.10 4.2.7.2.686 [id number] [facility] 2022-10-12 11:38:06 2022-10-12 23:59:00 Outpatient R DUANE STARKEY [facility] [id number] [facility] 2022-10-12 11:15:00 2022-10-12 11:30:00 [facility] 1.2.840.114 350.1.13.10 4.2.7.2.686 [id number] [facility] 2022-08-10 10:42:24 2022-08-10 23:59:00 Outpatient MELODY JIMENEZ [facility] [id number] [facility] 2022-07-14 00:00:00 2022-07-14 00:00:00 Telephone [facility] [place] 1.2.840.114 350.1.13.10 4.2.7.2.686 [id number] [facility] 2021-12-16 00:00:00 2021-12-16 00:00:00 Telephone Renetta Me[facility] [place] BU[facility] 1.2.840.114 350.1.13.10 4.2.7.2.686 [id number] [facility] 2021-12-02 09:15:00 2021-12-02 09:15:00 Outpatient R RENETTA MEZA [facility] [id number] [facility] 2021-11-18 09:15:00 2021-11-18 09:57:53 Outpatient DUANE JULIEN [facility] [id number] [facility] 2021-11-18 09:15:00 2021-11-18 09:30:00 Office Visit Duane Starkey [facility] 1.2.840.114 350.1.13.10 4.2.7.2.686 [id number] [facility] 2021-11-18 09:15:00 2021-11-18 09:15:00 Outpatient R DUANE STARKEY [facility] [id number] [facility] 2021-11-11 08:45:00 2021-11-11 09:10:58 [facility] 1.2.840.114 350.1.13.10 4.2.7.2.686 [id number] [facility] 2021-11-11 08:45:00 2021-11-11 09:10:58 Outpatient DUANE JULIEN [facility] [id number] [facility] 2021-11-11 08:45:00 2021-11-11 08:45:00 Outpatient DUANE JULIEN [facility] [id number] [facility] 2021-11-03 08:00:00 2021-11-03 08:28:49 Outpatient DUANE JULIEN [facility] [id number] [facility] 2021-11-03 08:00:00 2021-11-03 08:28:49 Office Visit [facility] [place]?[facility] MED[facility] OFFICE BUILDING 1.2.840.114 350.1.13.10 4.2.7.2.686 [id number] [facility] 2021-11-03 08:00:00 2021-11-03 08:28:49 Outpatient DUANE JULIEN [facility] [id number] [facility] 2021-11-01 14:15:00 2021-11-01 14:15:00 Outpatient DUANE JULIEN [facility] [id number] [facility] 2021-10-24 00:00:00 2021-10-24 00:00:00 Telephone [facility] [place] 1.2.840.114 350.1.13.10 4.2.7.2.686 [id number] [facility] 2021-10-24 00:00:00 2021-10-24 00:00:00 [facility] 1.2840.114 350.1.13.10 4.2.7.2.686 [id number] [facility] 2021-10-12 14:15:00 2021-10-12 14:54:34 Outpatient R RENETTA MEZA [facility] [id number] [facility] 2021-10-12 14:15:00 2021-10-12 14:54:34 Office Visit Renetta Meza [facility] OFF[facility] BUILD[facility] 1.84.114 350.1.13.10 4.2.7.2.686 [id number] [facility] 2021-10-12 00:00:00 2021-10-12 00:00:00 Orders Only Doctor Unassigned, [place] [facility] 1.840.114 350.1.13.10 4.2.7.2.686 [id number] [facility] 2021-08-12 09:30:00 2021-08-12 23:59:00 Outpatient R RENETTA MEZA [facility] [id number] [facility] 2021-08-12 09:30:00 2021-08-12 23:59:00 Hospital Encounter Renetta Meza [facility] 1.840.114 350.1.13.10 4.2.7.2.686 [id number] [facility] 2021-08-12 09:30:00 2021-08-12 09:59:31 Office Visit Renetta Meza [facility] 1.840.114 350.1.13.10 4.2.7.2.686 [id number] [facility] 2021-08-12 09:30:00 2021-08-12 09:30:00 Outpatient R RENETTA MEZA [facility] [id number] [facility] 2021-08-12 00:00:00 2021-08-12 00:00:00 Orders Only Doctor Unassigned, [place] [facility] 1.2.840.114 350.1.13.10 4.2.7.2.686 [id number] [facility] 2021-07-29 00:00:00 2021-07-29 00:00:00 Letter (Out) Mukesh Stone [facility] 1.2.840.114 350.1.13.10 4.2.7.2.686 [id number] [facility] 2021-07-20 00:00:00 2021-07-20 00:00:00 Orders Only Doctor Unassigned, [place] [facility] 1.2.840.114 350.1.13.10 4.2.7.2.686 [id number] [facility] 2019-11-11 09:30:00 2019-11-11 09:30:[address] [facility] [id number] [facility] 2019-11-11 07:54:23 2019-11-11 08:24:23 Telemedici ne Visit [facility] 1.2.840.114 350.1.13.10 4.2.7.2.686 [id number] [facility] 2019-11-11 00:00:00 2019-11-11 00:00:00 Telephone [facility] 1.2.840.114 350.1.13.10 4.2.7.2.686 [id number] [facility] Results Test Description Test Time Test Comments Results Result Co mments Source [facility] Notes Date/Time Note Provider Source 2024-02-08 13:13:36 [facility] sent referral to Dr. Newton sent to HIM [facility] 2023-08-17 16:49:00 Images from the original note [...] 11/06/2023, we'll discuss further management after re-evaluation. NG MACHINE OPERATOR ELECTRONIC Tiffany Mcnally RN [facility] 2023-08-17 13:26:54 Bertha Munroe is a 73 year old female Patient returning call to Cheri, aleks advise. NG MACHINE OPERATOR ELECTRONIC Shania Zaidi [facility] 2023-08-17 13:20:25 Images from the original note were not included. Attempted to contact patient with results/recommendations. LV for patient to return call to [phone]. Kristopher Velázquez MD P Cardiology Nurse Please [...] 11/06/2023, we'll discuss further management after re-evaluation. NG MACHINE OPERATOR ELECTRONIC [facility] 2023-08-16 10:10:29 Sent an email to Karrie to let her know she wanted to cancel her surgery at this time. Charlene Farah 08/16/2023 10:10 AM [facility] 2023-08-16 09:21:38 Patient is requesting to cancel her surgery that is scheduled on 08/29/2023. She is not able to do it at this time. [facility] 2023-08-09 10:43:39 Images from the original note were not included. Called patient for results patient verbalized understanding with no further questions will send the atorvastatin to in [place] for the patient. Kristopher Velázquez MD P Cardiology Nurse Please let Ms. Bertha Munroe know that the cholesterol level is elevated. I recommend starting a cholesterol lowering medicine (atorvastatin 40 mg daily). Serum calcium is also elevated (a chronic abnormality), please discuss this finding with your PCP. [facility] 2023-08-08 13:00:00 Images from the original note were not included. Venipuncture collection performed by clean technique on the left anticubitus. Total of 1 attempts were made. Slight pressure and a bandage/dressing were applied to the site(s). The patient experienced no complications. The following specimens were processed according to instructions and sent to [facility] laboratories per lab order on 08/08/2023 : LT BLUE SST 1 RED LAV 1 PPT DK GREEN (LiHep) DK GREEN (SodH) HILL DK BLUE (K2) DK BLUE (S) ACD Blood Culture NIPT/NTD [facility] 2023-08-08 13:00:00 Addended by: KRISTOPHER MORROW on: 08/09/2023 09:21 AM Modules accepted: Orders [facility]
--- NOTE | 2025-04-21 13:50 | RAD REPORT ---
EXAMINATION: ONE VIEW CHEST XR CLINICAL INDICATION: ABDOMINAL DISTENTION TECHNIQUE: Frontal chest projection is submitted. Examination is limited by patient positioning and t echnique. COMPARISON: 03/14/2024 FINDINGS: The lungs are well inflated and clear. The heart is upper limit of normal in size. No displaced fract ures identified. Moderate hiatal hernia. IMPRESSION: No acute intrathoracic abnormalities.
[2025-04-21 14:27] LABS: Absolute Lymphocytes (CBC) 1.7 K/uL (0.7-4.9); Hematocrit 23.8 % (36.0-45.0); Hemoglobin 7.7 g/dL (12.0-15.0); MCH 24.7 pg (27.0-35.0); MCHC 32.5 g/dL (32.0-36.0); MCV 76.0 fL (80-100); MPV 7.4 fL (7.6-11.3); Nucleated RBC Absolute Count 0.0 (0-0); Nucleated Red Blood Cells % 0.1 % (0-0); RBC Red Blood Cell Count 3.13 M/uL (3.86-4.86); White Blood Count 5.00 thou/uL (4.3-10.9)
[2025-04-21 14:30] LABS: Sqamous Epithelial <5 /HPF (None Seen); Urine Culture Reflex Order NOT NEEDED; Urine Microscopic Reflex YN ORDER UMIC
[2025-04-21 14:33] LABS: PT Prothrombin Time 12.8 SECONDS (10-13.0); Protime INR 1.14
[2025-04-21 14:55] LABS: ALT/SGPT 51.0 U/L (13-56); AST/SGOT 32.0 U/L (15-37); Albumin 3.1 g/dL (3.4-5.0); Albumin/Globulin Ratio 0.8 (1.1-1.8); Alkaline Phosphatase 142.0 U/L (45-117); Anion Gap 9.6 mEq/L (5.0-15.0); BUN Blood Urea Nitrogen 21.0 mg/dL (7-18); Bilirubin Indirect, Calculated 0.4 mg/dL (0.2-0.8); Globulin 4.1 g/dL (2.3-3.5); Glucose Level 108.0 mg/dL (74-106); Lipase 30.0 U/L (13-75); Magnesium 1.9 mg/dL (1.6-2.4); NT PRO-BNP 256.0 pg/mL (<450); Potassium 3.6 mEq/L (3.5-5.1); Troponin High Sensitivity 10.6 pg/mL (<58.9)
[2025-04-21] MEDS ORDERED: NA CHLORIDE 0.9% 1,000 ML ONE (15:38)
[2025-04-21] MEDS ORDERED: PANTOPRAZOLE 40 MG INJ ONE (16:17)
[2025-04-21] MEDS ORDERED: NA CHLORIDE 0.9% 100 ML ONE (16:17)
--- NOTE | 2025-04-21 18:26 | ER ---
Nurse's Notes [facility] Name: Bertha Munroe Age: 75 yrs Sex: Female : 1950 Arrival Date: 04/21/2025 Time: 12:18 Bed 16 Private MD: Diagnosis: Acute posthemorrhagic anemia-upper gi;GI Bleed/ Gastrointestinal hemorrhage, unspecified-upprt;Anemia, unspecified Presentation: 04/21 12:47 Chief complaint: Patient states: Fatigue black BM, feeling thirsty, SOB with exertion ll1 since Sunday. Dr Stone office sent her in for further evaluation. No fever. Coronavirus screen: Client denies travel out of the [place] in the last 14 days. At this time, the client does not indicate any symptoms associated with coronavirus-19. Ebola Screen: Patient denies travel to an Ebola-affected area in the 21 days before illness onset. Initial Sepsis Screen: Does the patient meet any 2 criteria? No. Patient's initial sepsis screen is negative. Does the patient have a suspected source of infection? No. Patient's initial sepsis screen is negative. Risk Assessment: Do you want to hurt yourself or someone else? Patient reports no desire to harm self or others. Onset of symptoms was April 18, 2025. 12:47 Method Of Arrival: Ambulatory ll1 12:47 Acuity: HA 3 ll1 Triage Assessment: 15:00 General: Appears in no apparent distress. Behavior is calm, cooperative, appropriate bp for age. Pain: Denies pain. EENT: No deficits noted. Neuro: No deficits noted. Cardiovascular: Rhythm is sinus rhythm. Respiratory: No deficits noted. GI: Reports bloody stool. : No signs and/or symptoms were reported regarding the genitourinary system. Derm: Skin is pale. Musculoskeletal: No deficits noted. Historical: - Allergies: 12:30 No Known Allergies; ll1 - PMHx: 12:30 Hypertensive disorder; Hypercholesterolemia; ll1 - Immunization history:: Adult Immunizations up to date. - Infectious Disease History:: Denies. - Social history:: Smoking status: Patient denies any tobacco usage or history of. Screenin:44 [facility] ED Fall Risk Assessment (Adult) History of falling in the last 3 months, bp including since admission No falls in past 3 months (0 pts) Confusion or Disorientation No (0 pts) Intoxicated or Sedated No (0 pts) Impaired Gait No (0 pts) Mobility Assist Device Used No (0 pt) Altered Elimination No (0 pt) Score/Fall Risk Level 0 - 2 = Low Risk Oriented to surroundings. Abuse screen: Denies threats or abuse. Denies injuries from another. Nutritional screening: No deficits noted. Tuberculosis screening: No symptoms or risk factors identified. Assessment: 15:00 General: SEE TRIAGE NOTE. bp 16:44 Reassessment: Patient appears in no apparent distress at this time. Patient is alert, bp oriented x 3, equal unlabored respirations, skin warm/dry/pink. 22:40 General: Report given to BHUPINDER gramajo, Blood hand off done with BHUPINDER Gramajo. Consent on kd4 the chart with all document sent to floor. Patient taking to unit by this RN.. 22:47 General: Protonix handoff done with BHUPINDER Gramajo. kd4 Vital Signs: 12:47 BP 151 / 83; Pulse 81; Resp 17; Temp 97.4; Pulse Ox 97% ; Weight 86.64 kg; Height 5 ft. ll1 6 in. ; Pain 0/10; 16:41 BP 159 / 61; Pulse 86; Resp 16; Pulse Ox 100% ; bp 18:30 BP 183 / 82; Pulse 86; Resp 15; Pulse Ox 99% ; bp 20:26 BP 182 / 88; Pulse 98; Resp 19; Temp 98.1; Pulse Ox 98% on R/A; Pain 0/10; kd4 12:47 Body Mass Index 30.83 (86.64 kg, 167.64 cm) ll1 12:47 Pain Scale: Adult ll1 20:26 Pain Scale: Adult kd4 Millen Coma Score: 20:26 Eye Response: spontaneous(4). Motor Response: obeys commands(6). Verbal Response: kd4 oriented(5). Total: 15. ED Course: 12:22 Patient arrived in ED. mr 12:30 Arm band placed on. ll1 12:49 Triage completed. ll1 12:52 Sami Hassan MD is Attending Physician. josh 13:47 XRAY Chest (1 view) In Process Unspecified. EDMS 14:53 Aubrey Marshall, RN is Primary Nurse. bp 15:33 EKG done, by fingerprint technician. reviewed by Sami Hassan MD. ts3 15:33 Initial lab(s) drawn, by ED staff, sent to lab. Inserted saline lock: 22 gauge in right ts3 wrist, using aseptic technique. Blood collected. Flushed with 10 mL NS. 16:44 Patient has correct armband on for positive identification. bp 18:24 Sami Hassan MD is Hospitalizing Provider. josh 18:24 Ray Florian MD is Hospitalizing Provider. josh 20:00 Client placed on continuous cardiac and pulse oximetry monitoring. NIBP monitoring kd4 applied. teletypesetter monitor on. Pulse ox on. NIBP on. 20:52 Inserted saline lock: 20 gauge in left antecubital area, using aseptic technique. kd4 22:45 Provided Education on: NEED FOR DMISSION. kd4 22:45 No provider procedures requiring assistance completed. Patient admitted, IV remains in kd4 place. Administered Medications: 15:48 Drug: NS 0.9% IV 500 ml 500 ml IV at 1 bolus once; to be given as a bolus over 30 bp minutes Volume: 500 ml; Route: IV; Rate: 1 bolus; Site: right antecubital; 15:49 Drug: NS 0.9% IV 1000 ml IV at 125 ml/hr once Route: IV; Rate: 125 ml/hr; Site: right bp antecubital; 16:41 Drug: Pantoprazole IVP 80 mg IVP once Route: IVP; Site: right antecubital; bp 16:41 Drug: Pantoprazole IV 8 mg/hr IV at 25 ml/hr continuous; (Standard dilution is 80 mg in bp 250 mL NS) Route: IV; Rate: 25 ml/hr; Site: right antecubital; Medication: 16:44 VIS not applicable for this client. bp Outcome: 18:25 Decision to Hospitalize by Provider. josh 22:45 Admitted to Tele accompanied by nurse, via stretcher, room 223, with chart, kd4 22:45 Condition: stable 22:45 Instructed on the need for admit, 22:46 Patient left the ED. kd4 Signatures: Dispatcher [employer] EDMS Sami Hassan MD MD cha Rivera, Mary, Reg Reg Aubrey Sofia, RN RN bp Hermes Verde RN RN 1 Mayank Corbin RN RN kd4 Quin Caldwell ts3
--- NOTE | 2025-04-21 18:26 | EDPHYS ---
Physician Documentation [facility] Name: Bertha Munroe Age: 75 yrs Sex: Female : 1950 Arrival Date: 04/21/2025 Time: 12:18 Bed 16 Private MD: ED Physician Sami Hassan HPI: 04/21 18:20 This 75 yrs old Female presents to ER via Ambulatory with complaints of josh Bloody Stools. 18:20 The patient presents to the emergency department with rectal bleeding, melena, with josh multiple such episodes. Onset: The symptoms/episode began/occurred yesterday. Abdominal pain: none is appreciated. Modifying factors: The symptoms are alleviated by nothing, the symptoms are aggravated by nothing. weak , no hx gi bleed, with melena. Associated signs and symptoms: Pertinent positives: weak. Severity of symptoms: At their worst the symptoms were moderate in the emergency department the symptoms are unchanged. The patient has not experienced similar symptoms in the past. Historical: - Allergies: 12:30 No Known Allergies; ll1 - PMHx: 12:30 Hypertensive disorder; Hypercholesterolemia; ll1 - Immunization history:: Adult Immunizations up to date. - Infectious Disease History:: Denies. - Social history:: Smoking status: Patient denies any tobacco usage or history of. ROS: 18:21 Constitutional: Negative for fever, chills, and weight loss, Eyes: Negative for injury, josh pain, redness, and discharge, ENT: Negative for injury, pain, and discharge, Neck: Negative for injury, pain, and swelling, Cardiovascular: Negative for chest pain, palpitations, and edema, Respiratory: Negative for shortness of breath, cough, wheezing, and pleuritic chest pain, Back: Negative for injury and pain, : Negative for injury, bleeding, discharge, and swelling, MS/Extremity: Negative for injury and deformity, Neuro: Negative for headache, weakness, numbness, tingling, and seizure, Psych: Negative for depression, anxiety, suicide ideation, homicidal ideation, and hallucinations, Allergy/Immunology: Negative for hives, rash, and allergies, Endocrine: Negative for neck swelling, polydipsia, polyuria, polyphagia, and marked weight changes, Hematologic/Lymphatic: Negative for swollen nodes, abnormal bleeding, and unusual bruising, 18:21 Abdomen/GI: Positive for nausea, abdominal cramps, black/tarry stool, 18:21 Skin: Positive for pallor, Exam: 18:21 Constitutional: This is a well developed, well nourished patient who is awake, alert, josh and in no acute distress. Head/Face: Normocephalic, atraumatic. Eyes: Pupils equal round and reactive to light, extra-ocular motions intact. Lids and lashes normal. Conjunctiva and sclera are non-icteric and not injected. Cornea within normal limits. Periorbital areas with no swelling, redness, or edema. ENT: Nares patent. No nasal discharge, no septal abnormalities noted. Tympanic membranes are normal and external auditory canals are clear. Oropharynx with no redness, swelling, or masses, exudates, or evidence of obstruction, uvula midline. Mucous membranes moist. Neck: Trachea midline, no thyromegaly or masses palpated, and no cervical lymphadenopathy. Supple, full range of motion without nuchal rigidity, or vertebral point tenderness. No Meningismus. Chest/axilla: Normal chest wall appearance and motion. Nontender with no deformity. No lesions are appreciated. Cardiovascular: Regular rate and rhythm with a normal S1 and S2. No gallops, murmurs, or rubs. Normal PMI, no JVD. No pulse deficits. Respiratory: Lungs have equal breath sounds bilaterally, clear to auscultation and percussion. No rales, rhonchi or wheezes noted. No increased work of breathing, no retractions or nasal flaring. Back: No spinal tenderness. No costovertebral tenderness. Full range of motion. Female : Normal external genitalia. MS/ Extremity: Pulses equal, no cyanosis. Neurovascular intact. Full, normal range of motion., bilateral aka Neuro: Awake and alert, GCS 15, oriented to person, place, time, and situation. Cranial nerves II-XII grossly intact. Motor strength 5/5 in all extremities. Sensory grossly intact. Cerebellar exam normal. Normal gait. Psych: Awake, alert, with orientation to person, place and time. Behavior, mood, and affect are within normal limits. 18:21 ECG was reviewed by the Attending Physician. 18:21 Abdomen/GI: Inspection: abdomen appears normal, Bowel sounds: normal, Palpation: abdomen is soft and non-tender, Rectal exam: the exam is deferred, black , tarry, sticky, Vital Signs: 12:47 BP 151 / 83; Pulse 81; Resp 17; Temp 97.4; Pulse Ox 97% ; Weight 86.64 kg; Height 5 ft. ll1 6 in. ; Pain 0/10; 16:41 BP 159 / 61; Pulse 86; Resp 16; Pulse Ox 100% ; bp 18:30 BP 183 / 82; Pulse 86; Resp 15; Pulse Ox 99% ; bp 20:26 BP 182 / 88; Pulse 98; Resp 19; Temp 98.1; Pulse Ox 98% on R/A; Pain 0/10; kd4 12:47 Body Mass Index 30.83 (86.64 kg, 167.64 cm) ll1 12:47 Pain Scale: Adult ll1 20:26 Pain Scale: Adult kd4 Syed Coma Score: 20:26 Eye Response: spontaneous(4). Motor Response: obeys commands(6). Verbal Response: kd4 oriented(5). Total: 15. MDM: 12:52 Medical Screening Exam initiated josh 18:22 Differential diagnosis: gastritis, diverticulitis, hemorrhoids, hemorrhagic shock, josh varices. Data reviewed: vital signs, nurses notes, lab test result(s), EKG, radiologic studies, CT scan. Consideration of Admission/Observation Patient was admitted/placed on observation. Escalation of care including admission/observation considered. I considered the following discharge prescriptions or medication management in the emergency department Medications were administered in the Emergency Department. See MAR. Independent interpretation of the following test(s) in the Emergency Department EKG: See my EKG interpretation above. Test considered but Not performed: Ultrasound no abd usg. Historians other than the Patient: Family Member: family well informed, son. Care significantly affected by the following chronic conditions: Hypertension, high chlesterol. Counseling: I had a detailed discussion with the patient and/or guardian regarding the historical points, exam findings, and any diagnostic results supporting the discharge/admit diagnosis, lab results, radiology results, the need for further work-up and treatment in the hospital. 04/21 12:59 Order name: Basic Metabolic Panel; Complete Time: 18:06 [facility] 04/21 12:59 Order name: CBC with Diff; Complete Time: 18:06 [facility] 04/21 12:59 Order name: LFT's; Complete Time: 18:06 [facility] 04/21 12:59 Order name: Magnesium; Complete Time: 18:06 [facility] 04/21 12:59 Order name: NT PRO-BNP; Complete Time: 18:06 [facility] 04/21 12:59 Order name: PT-INR; Complete Time: 18:06 [facility] 04/21 12:59 Order name: Troponin HS; Complete Time: 18:06 [facility] 04/21 12:59 Order name: Lipase; Complete Time: 18:06 [facility] 04/21 12:59 Order name: Type And Screen [facility] 04/21 12:59 Order name: UA Rfx Ghassan Cult if indicated; Complete Time: 18:06 [facility] 04/21 18:18 Order name: Bb Add On ss 04/21 18:24 Order name: Packed RBCs (Additional Unit) [facility] 04/21 18:46 Order name: ABO/RH no charge [facility] 04/21 19:20 Order name: CBC with Automated Diff [facility] 04/21 19:20 Order name: CBC with Automated Diff [facility] 04/21 19:20 Order name: Comprehensive Metabolic Panel [facility] 04/21 19:20 Order name: Comprehensive Metabolic Panel [facility] 04/21 12:59 Order name: XRAY Chest (1 view); Complete Time: 18:06 [facility] 04/21 12:59 Order name: EKG; Complete Time: 13:00 [facility] 04/21 19:20 Order name: CONS Physician Consult [facility] 04/21 12:59 Order name: Cardiac monitoring; Complete Time: 15:33 [facility] 04/21 12:59 Order name: EKG - Nurse/Tech; Complete Time: 15:33 [facility] 04/21 12:59 Order name: IV Saline Lock; Complete Time: 15:16 [facility] 04/21 12:59 Order name: Labs collected and sent; Complete Time: 15:16 [facility] 04/21 12:59 Order name: O2 Per Protocol; Complete Time: 15:36 [facility] 04/21 12:59 Order name: O2 Sat Monitoring; Complete Time: 15:33 [facility] 04/21 12:59 Order name: IV Saline Lock - Large Bore; Complete Time: 15:36 [facility] 04/21 18:11 Order name: Transfuse [facility] 04/21 18:20 Order name: Misc. Order: please collect ABO/RH verification; Complete Time: 18:36 ss EC:21 Rate is 73 beats/min. Rhythm is regular. QRS Buena is Normal. LA interval is normal. QRS josh interval is normal. QT interval is normal. No Q waves. T waves are Normal. No ST changes noted. Clinical impression: Normal ECG and No evidence of ischemia. Interpreted by me. Reviewed by me. Administered Medications: 15:48 Drug: NS 0.9% IV 500 ml 500 ml IV at 1 bolus once; to be given as a bolus over 30 bp minutes Volume: 500 ml; Route: IV; Rate: 1 bolus; Site: right antecubital; 15:49 Drug: NS 0.9% IV 1000 ml IV at 125 ml/hr once Route: IV; Rate: 125 ml/hr; Site: right bp antecubital; 16:41 Drug: Pantoprazole IVP 80 mg IVP once Route: IVP; Site: right antecubital; bp 16:41 Drug: Pantoprazole IV 8 mg/hr IV at 25 ml/hr continuous; (Standard dilution is 80 mg in bp 250 mL NS) Route: IV; Rate: 25 ml/hr; Site: right antecubital; Disposition Summary: 04/21/25 18:25 Hospitalization Ordered Notes: Hospitalization Status: Inpatient Admission josh Provider: Ray Florian cha Condition: Fair josh Problem: new josh Symptoms: have improved josh Bed/Room Type: Standard josh Location: Telemetry/MedSurg (Inpatient)(04/21/25 20:17) Room Assignment: 223(04/21/25 20:17) Diagnosis - Acute posthemorrhagic anemia - upper gi josh - GI Bleed/ Gastrointestinal hemorrhage, unspecified - upprt josh - Anemia, unspecified josh Forms: - Medication Reconciliation Form josh - SBAR form josh - Leadership Thank You Letter josh Signatures: Dispatcher [employer] EDAshley Hernanedz RN RN kl Anderson, Corey, MD MD cha Blanchard, Shelby, RN RN ss Peltier, Brian, RN RN bp Lewis, Lynsay, RN RN [facility] She Grimaldo 1 Corrections: (The following items were deleted from the chart) 13:00 13:00 BASIC METABOLIC PANEL+C.LAB.BRZ ordered. EDMS EDMS 13:00 13:00 CBC+H.LAB.BRZ ordered. EDMS EDMS 13:00 13:00 HEPATIC FUNCTION+C.LAB.BRZ ordered. EDMS EDMS 13:00 13:00 MAGNESIUM+C.LAB.BRZ ordered. EDMS EDMS 13:00 13:00 PROBNP+C.LAB.BRZ ordered. EDMS EDMS 13: 13:00 PROTIME (+INR)+COAG.LAB.BRZ ordered. EDMS EDMS 13: 13:00 Troponin High Sensitivity+C.LAB.BRZ ordered. EDMS EDMS 13: 13:00 LIPASE+C.LAB.BRZ ordered. EDMS EDMS : 13:00 TYPE AND SCREEN+BB.LAB.BRZ ordered. EDMS EDMS 13: 13:00 UA Rfx Ghassan Cult if indicated+U.LAB.BRZ ordered. EDMS EDMS 18:42 18:11 PACKED RBC LEUKORED+BB.LAB.BRZ ordered. EDMS EDMS 18:42 18:13 ABO/RH typing ordered. EDMS EDMS 18:42 18:13 Antibody Screen ordered. EDMS EDMS 19:36 18:25 Telemetry/MedSurg (Inpatient) josh rv1 19:36 18:25 josh rv1 20:17 19:36 [facility] ER HOLD rv1 kl 20:17 19:36 ERHOLD- rv1 kl
--- NOTE | 2025-04-21 19:14 | P.HP ---
Certification for Inpatient Patient admitted to: Inpatient With expected LOS: >2 Midnights Practitioner: I am a practitioner with admitting privileges, knowledge of patient current condition, hospital course, and medical plan of care. Services: Services provided to patient in accordance with Admission requirements found in Title 42 Section 412.3 of the Code of Federal Regulations Patient History Date of Service: 04/21/25 Reason for admission: GI Bleeding History of Present Illness: 75 yrs old Female presents to ER via Ambulatory with complaints of josh Bloody Stools. 18:20 The patient presents to the emergency department with rectal bleeding, melena, with josh multiple such episodes. Onset: The symptoms/episode began/occurred yesterday. Abdominal pain: none is appreciated. Modifying factors: The symptoms are alleviated by nothing, the symptoms are aggravated by nothing. weak , no hx gi bleed, with melena. Associated signs and symptoms: Pertinent positives: weak. Severity of symptoms: At their worst the symptoms were moderate in the emergency department the symptoms are unchanged. The patient has not experienced similar symptoms in the past. Historical: - Allergies: 12:30 No Known Allergies; ll1 - PMHx: 12:30 Hypertensive disorder; Hypercholesterolemia Allergies No Known Allergies Allergy (Verified 03/18/24 06:59) Home medications list reviewed: Yes Home Medications: Duloxetine HCl [Cymbalta] 60 mg PO DAILY 11/28/13 Metoprolol Tartrate [Lopressor*] 50 mg PO BID 11/28/13 Omeprazole [Prilosec] 40 mg PO DAILY 11/28/13 Amlodipine [Norvasc*] 5 mg PO BID 03/14/24 Losartan Potassium 25 mg PO DAILY 03/14/24 clonazePAM [Clonazepam] 0.5 mg PO BEDTIME 03/14/24 Hydrocodone 7.5/APAP 325 [[place] 7.5/325 mg*] 1 tab PO Q4H PRN #30 tab 03/19/24 Rivaroxaban [Xarelto] 10 mg PO DAILY #20 tab 03/19/24 - Past Medical/Surgical History Diabetic: No Past Medical History: Reviewed- Non-Contributory -: HTN -: Osteoarthritis -: Chronic Kidney Disease -: Anxiety -: Depression Past Surgical History: Reviewed- Non-Contributory -: hysterectomy -: gallbladder -: foot sx - Family History Father -: Heart disease - Social History Smoking Status: Never smoker Alcohol use: Yes CD- Drugs: No Caffeine use: Yes Review of Systems 10-point ROS is otherwise unremarkable Physical Examination - Vital Signs Temperature: 97.8 F Blood Pressure: 176/78 Pulse: 86 Respirations: 18 Pulse Ox (%): 94 - Physical Exam General: Alert, In no apparent distress, Oriented x3 HEENT: Atraumatic, PERRLA Neck: Supple Respiratory: Clear to auscultation bilaterally, Normal air movement Cardiovascular: Regular rate/rhythm, Normal S1 S2 Capillary refill: <2 Seconds Gastrointestinal: Soft and benign, W/out hepatosplenomegaly Musculoskeletal: No clubbing, No swelling Integumentary: No rashes Neurological: Normal gait, Normal speech, Normal strength at 5/5 x4 extr, Sensation intact, Cranial nerves 3-12 intact, Normal affect Lymphatics: No axilla or inguinal lymphadenopathy - Studies Laboratory Data (last 24 hrs) 04/21/25 04/21/25 04/21/25 14:09 14:09 14:09 WBC 5.00 Hgb 7.7 L Hct 23.8 L Plt Count 322 PT 12.8 INR 1.14 Sodium 140 Potassium 3.6 BUN 21 H Creatinine 1.05 H Glucose 108 H Magnesium 1.9 Total Bilirubin 0.6 AST 32 ALT 51 Alkaline Phosphatase 142 H Lipase 30 Assessment and Plan - Plan GI bleed Complaints of melena Monitor vital signs closely Pressors as needed Will start on Protonix drip GI consulted Acute blood loss anemia Monitor H&H serially Transfuse as needed Hypertension Antihypertensives titrated Continue home medications and titrate as needed Hyperlipidemia Continue statin GI/DVT prophylaxis Advanced directive full code Discharge Plan: Home Plan to discharge in: 48 Hours - Advance Directives Does patient have a Living Will: No Does patient have a Durable POA for Healthcare: No - Code Status/Comfort Care Code Status: Full Code Time Spent Managing Pts Care (In Minutes): 48
[2025-04-21] MEDS ORDERED: ACETAMINOPHEN 325 MG TABLET PO PRN (19:15)
[2025-04-21] MEDS ORDERED: ONDANSETRON 4 MG/2 ML VIAL IV PRN (19:15)
[2025-04-21] MEDS: PANTOPRAZOLE INJ 80 MG in NA CHLORIDE 0.9% 250 ML IV SCH (20:00)
[2025-04-21] MEDS: ACETAMINOPHEN 325 MG TABLET PO ONE (22:48)
[2025-04-21] MEDS: DIPHENHYDRAMINE 50 MG/ML VIAL IV ONE (22:48)
[2025-04-21] MEDS: NA CHLORIDE 0.9% 1,000 ML IV SCH (23:32)
[2025-04-21] MEDS: PANTOPRAZOLE 40 MG INJ ONE (23:33)
[2025-04-21] MEDS: NA CHLORIDE 0.9% 250 ML ONE (23:33)
[2025-04-22 06:27] LABS: Absolute Lymphocytes (CBC) 1.7 K/uL (0.7-4.9); Hematocrit 26.6 % (36.0-45.0); Hemoglobin 8.9 g/dL (12.0-15.0); MCH 26.2 pg (27.0-35.0); MCHC 33.6 g/dL (32.0-36.0); MCV 78.0 fL (80-100); MPV 7.1 fL (7.6-11.3); Nucleated RBC Absolute Count 0.0 (0-0); Nucleated Red Blood Cells % 0.1 % (0-0); RBC Red Blood Cell Count 3.40 M/uL (3.86-4.86); White Blood Count 4.20 thou/uL (4.3-10.9)
[2025-04-22 06:46] LABS: ALT/SGPT 41.0 U/L (13-56); AST/SGOT 20.0 U/L (15-37); Albumin 2.8 g/dL (3.4-5.0); Albumin/Globulin Ratio 0.8 (1.1-1.8); Alkaline Phosphatase 119.0 U/L (45-117); Anion Gap 10.3 mEq/L (5.0-15.0); BUN Blood Urea Nitrogen 12.0 mg/dL (7-18); Globulin 3.6 g/dL (2.3-3.5); Glucose Level 99.0 mg/dL (74-106); Potassium 3.3 mEq/L (3.5-5.1)
[2025-04-22] MEDS: LOSARTAN POTASSIUM 50 MG TABLET PO SCH (09:00)
[2025-04-22] MEDS: POTASSIUM CL SA 10 MEQ TAB PO ONE (09:00)
[2025-04-22] MEDS: DULOXETINE 30 MG CAP PO SCH (09:00)
[2025-04-22] MEDS: METOPROLOL TAR 50 MG TAB PO SCH (09:00)
[2025-04-22] MEDS: clonazePAM 0.5 MG TAB PO SCH (09:00)
[2025-04-22] MEDS: AMLODIPINE 5 MG TAB PO SCH (09:00)
--- NOTE | 2025-04-22 09:23 | P.PN ---
Subjective Date of Service: 04/22/25 Chief Complaint: GI Bleeding Subjective: No new changes (Patient is NPO for endoscopic evaluation.) Physical Examination - Vital Signs Temperature: 99.3 F Blood Pressure: 176/74 Pulse: 100 Respirations: 22 Pulse Ox (%): 92 - Physical Exam General: In no apparent distress, Cooperative, Obese HEENT: Atraumatic, Normocephalic Respiratory: Clear to auscultation bilaterally, Normal air movement Cardiovascular: No edema, Normal pulses, Regular rate/rhythm, Normal S1 S2 Gastrointestinal: Soft and benign, Non-distended Neurological: Normal speech - Studies Laboratory Data (last 24 hrs) 04/21/25 04/21/25 04/21/25 14:09 14:09 14:09 WBC 5.00 Hgb 7.7 L Hct 23.8 L Plt Count 322 PT 12.8 INR 1.14 Sodium 140 Potassium 3.6 BUN 21 H Creatinine 1.05 H Glucose 108 H Magnesium 1.9 Total Bilirubin 0.6 AST 32 ALT 51 Alkaline Phosphatase 142 H Lipase 30 Assessment And Plan - Plan Assessment Patient is a 75-year-old female who presented to the hospital with melenic stools. She takes Advil occasionally for chronic back pain. Patient arrived in the ER with a hemoglobin of 7.7. Hemoglobin is currently 8.9 after blood transfusion. She is hemodynamically stable. Gastroenterology has been consulted. Upper GI bleeding Acute blood loss anemia Hypertension Hyperlipidemia Obesity Plan: Peptic ulcer disease in the differential Hold NSAIDs and antiplatelets She denies use of anticoagulation. She might have been placed on Xarelto 1 year ago after knee replacement. She denies current use She is status post blood transfusion N.p.o. for endoscopic evaluation PPI infusion Dr. Diallo has been [facility] As needed IV hydralazine for hypertension
[2025-04-22] MEDS: HYDRALAZINE HCL 20 MG/ML VIAL IV PRN (09:35)
[2025-04-22] MEDS: PANTOPRAZOLE INJ 80 MG in NA CHLORIDE 0.9% 250 ML IV SCH (09:35)
[2025-04-22] MEDS ORDERED: LIDOCAINE 1% MPF 30 ML VIAL ONE (11:36)
[2025-04-22] MEDS: NA CHLORIDE 0.9% 1,000 ML ONE (11:47)
[2025-04-22] MEDS: NA CHLORIDE 0.9% 500 ML ONE (11:51)
[2025-04-22 12:54] VITALS: O2SAT 96
[2025-04-22] MEDS: MAGNESIUM CITRATE 300 ML BOT PO SCH (13:00)
--- NOTE | 2025-04-22 13:22 | CON ---
Date of Consultation: 04/22/2025 Reason For Consultation: Melena with anemia. History Of Present Illness: The patient is a 75-year-old white female with history of hypertension, gastric reflux disease and heartburn, anxiety, depression, and chronic kidney disease. The patient p resented to the hospital with new-onset melena. States she has never had this before. Over the past 4 days, she has seen black stools. She denies any abdominal pain, fevers, chills, night sweats, silvia sea, vomiting, change in bowel habits, diarrhea, constipation. She said she does take Advil 2 tablet s every 6 hours secondary to her bilateral knee pain, low back and C-spine pain. Past Medical History: Significant for hypertension, heartburn, reflux disease, generalized anxiety d isorder, depression, osteoarthritis, chronic kidney disease, cholecystectomy, left total knee replace ment, hysterectomy with bilateral salpingo-oophorectomy back in 1999, and foot surgery. Allergies: NKDA. Medications: Include Cymbalta, Lopressor, metoprolol, Prilosec, Norvasc, losartan, clonazepam, [place] , Xarelto. Social History: She is a , 4 children, 1 son of congestive heart failure at age of 37. Nette soriano has a daughter who has advanced ovarian cancer for now and seems to have some disabilities as well. She also denies tobacco. She quit alcohol approximately 4 years ago. Family History: Father of cardiac disease and he also had a pacemaker. Mother of strokes. Daughter aged 49, has ovarian cancer ongoing and she is trying to take care of that 49-year-old justyna thompson who has disabilities as well. Physical Examination: Vital Signs: She is 5 feet 6 inches, 191 pounds. BMI of 30.8 kg/sq m. Temperature of 98.8, pulse 1 00 to 108, respirations 16, blood pressure 189/65. General: She is an obese female, lying in bed, in no acute distress, currently. HEENT: Normocephalic, atraumatic. Anicteric. Pupils equal, round, and reactive to light. Extraocu lar movements are intact. Oropharynx clear. Neck: Supple. No masses. Respirations: Clear to ausculation bilaterally. Cardiac: Regular rate and rhythm. No gallop or rub. Gastrointestinal: Positive bowel sounds. Soft, nontender, and nondistended. No hepatosplenomegaly. No peritoneal Garcia sign. No rebound. No guarding. Extremities: No clubbing, cyanosis, or edema. 2+ pulses. Neuro: Alert and oriented x3. Grossly nonfocal. 5/5 motor sensation to light touch. Laboratory Data: The patient has a white count of 4.2, hemoglobin of 8.9, up from 7.7 yesterday, hem atocrit 27, MCV of 78, platelet count up 255, polys of 46%, lymphocytes 41%, monocytes 11%, eosinophi ls 2%. PT of 12.8, INR of 1.14. She has sodium 143, potassium 3.3, chloride 113, bicarb 23, BUN of 12, creatinine of 0.62, glucose 99, calcium at 10.4, magnesium 1.9, total bilirubin 1.3, and AST of 2 0, ALT of 41, alkaline phosphatase 119, troponin I of 10.6. B-type natriuretic peptide negative at 2 56. Total protein 6.4, albumin 2.8. Lipase normal at 30. UA was negative except for trace protein in urine from a high blood pressure. See imaging, and she has chest x-ray which revealed no acute fi ndings. Her heart is at upper limit of normal size and a moderate hiatal hernia is noted. Impression: 1. Melena for the past 4 days, none prior. She denies any abdominal pain, fevers, chills, night swea ts, nausea, vomiting, diarrhea, although she does have little night sweats. No change in bowel habit s. She does take Advil 2 tablets p.o. q.6 hours due to bilateral knee pain and low back pain, and C- spine pain. 2. History of hypertension, gastric reflux disease and heartburn, depression, anxiety, osteoarthritis , chronic kidney disease, cholecystectomy in 2013, left total knee replacement, hysterectomy with trevor ateral salpingo-oophorectomy in 1999, and foot surgery. Recommendations: 1. Serial H and H and transfuse p.r.n. 2. Hold on Advil or any other NSAIDs. 3. PPI therapy. 4. EGD urgently. 5. resuscitation. 6. Check iron numbers. MANUELA/CRISPINL Voice ID: [id number] Report ID: [id number]
[2025-04-22] MEDS: BISACODYL E.C. 5 MG TAB PO ONE (14:22)
[2025-04-22] MEDS: GOLYTELY 4000 ML PO SCH (14:23)
[2025-04-22 23:41] VITALS: BMI 30.9
[2025-04-23 07:25] LABS: Absolute Lymphocytes (CBC) 1.5 K/uL (0.7-4.9); Hematocrit 26.3 % (36.0-45.0); Hemoglobin 8.9 g/dL (12.0-15.0); MCH 26.3 pg (27.0-35.0); MCHC 33.7 g/dL (32.0-36.0); MCV 78.1 fL (80-100); MPV 7.3 fL (7.6-11.3); Nucleated RBC Absolute Count 0.0 (0-0); Nucleated Red Blood Cells % 0.1 % (0-0); RBC Red Blood Cell Count 3.37 M/uL (3.86-4.86); White Blood Count 5.40 thou/uL (4.3-10.9)
[2025-04-23 07:38] LABS: Anion Gap 11.3 mEq/L (5.0-15.0); BUN Blood Urea Nitrogen 7.0 mg/dL (7-18); Glucose Level 95.0 mg/dL (74-106); Magnesium 1.9 mg/dL (1.6-2.4); Potassium 3.3 mEq/L (3.5-5.1)
[2025-04-23] MEDS: POTASSIUM PHOS IN 0.9 % NACL 15 MMOL/250 ML BAG IV ONE (09:59)
--- NOTE | 2025-04-23 10:28 | P.PN ---
Subjective Date of Service: 04/23/25 Chief Complaint: GI Bleeding Subjective: No new changes (Patient is n.p.o. for colonoscopy today. Currently drinking GoLytely.) Physical Examination - Vital Signs Temperature: 98.1 F Blood Pressure: 160/75 Pulse: 86 Respirations: 18 Pulse Ox (%): 94 - Physical Exam General: In no apparent distress, Cooperative HEENT: Atraumatic, Normocephalic Respiratory: Clear to auscultation bilaterally, Normal air movement Cardiovascular: No edema, Normal pulses, Regular rate/rhythm, Normal S1 S2 Neurological: Normal speech Assessment And Plan - Plan Assessment Patient is a 75-year-old female who presented to the hospital with melenic stools. She takes Advil occasionally for chronic back pain. Patient arrived in the ER with a hemoglobin of 7.7. Hemoglobin is currently 8.9 after blood transfusion. She is hemodynamically stable. Gastroenterology has been consulted. EGD on 04/22 revealed gastritis, gastric polyp and a large hiatal hernia. Patient is not contemplating any surgical repair at this time due to family duties. She is n.p.o. for colonoscopy today. Upper GI bleeding Acute blood loss anemia Hypokalemia Hypophosphatemia Hypertension Hyperlipidemia Obesity Plan: EGD with gastritis/gastric polyp/large hiatal hernia Her H&H remained stable after initial blood transfusion N.p.o. for colonoscopy today Continue holding NSAIDs and antiplatelets She denies use of anticoagulation. She might have been placed on Xarelto 1 year ago after knee replacement. She denies current use Acid suppression therapy Electrolyte replacement, potassium and phosphorus Discharge pending GI clearance SCDs for DVT prophylaxis As needed IV hydralazine for hypertension
--- NOTE | 2025-04-23 14:32 | P.DS ---
Admission Date: 04/21/25 Discharge Date: 04/23/25 Disposition: ROUTINE DISCHARGE Discharge Condition: GOOD Reason for Admission: GI Bleeding Hospital Course: Patient is a 75-year-old female who presented to the hospital with melenic stools. She takes Advil occasionally for chronic back pain. Patient arrived in the ER with a hemoglobin of 7.7. Hemoglobin is currently 8.9 after blood transfusion. She is hemodynamically stable. Gastroenterology has been consulted. EGD on 04/22 revealed gastritis, gastric polyp and a large hiatal hernia. Patient is not contemplating any surgical repair at this time due to family duties. She is n.p.o. for colonoscopy today. Her colonoscopy was canceled. She had an incomplete bowel prep with GoLytely. Patient's is eager to leave. Case discussed with GI. She can leave and follow-up with gastroenterology for outpatient colonoscopy. Vital Signs/Physical Exam: Temp Pulse Resp BP Pulse Ox 98.0 F 94 H 19 163/74 H 97 04/23/25 11:51 04/23/25 11:51 04/23/25 11:51 04/23/25 11:51 04/23/25 11:51 Please refer to physical exam written in today's progress note Laboratory Data at Discharge: WBC 5.40 thou/uL (4.3-10.9) 04/23/25 07:14 Hgb 8.9 g/dL (12.0-15.0) L 04/23/25 07:14 Hct 26.3 % (36.0-45.0) L 04/23/25 07:14 Plt Count 265 thou/uL (152-406) 04/23/25 07:14 PT 12.8 SECONDS (10-13.0) 04/21/25 14:09 INR 1.14 04/21/25 14:09 Sodium 144 mEq/L (136-145) 04/23/25 07:14 Potassium 3.3 mEq/L (3.5-5.1) L 04/23/25 07:14 BUN 7 mg/dL (7-18) 04/23/25 07:14 Creatinine 0.60 mg/dL (0.55-1.02) 04/23/25 07:14 Glucose 95 mg/dL (74-106) 04/23/25 07:14 Phosphorus 2.1 mg/dL (2.5-4.9) L 04/23/25 07:14 Magnesium 1.9 mg/dL (1.6-2.4) 04/23/25 07:14 Total Bilirubin 1.3 mg/dL (0.2-1.0) H 04/22/25 06:16 AST 20 U/L (15-37) 04/22/25 06:16 ALT 41 U/L (13-56) 04/22/25 06:16 Alkaline Phosphatase 119 U/L (45-117) H 04/22/25 06:16 Lipase 30 U/L (13-75) 04/21/25 14:09 Home Medications: Duloxetine HCl [Cymbalta] 60 mg PO DAILY 11/28/13 Metoprolol Tartrate [Lopressor*] 50 mg PO DAILY 11/28/13 Omeprazole [Prilosec] 40 mg PO DAILY 11/28/13 Amlodipine [Norvasc*] 5 mg PO BID 03/14/24 Losartan Potassium 25 mg PO DAILY 03/14/24 clonazePAM [Clonazepam] 0.5 mg PO BID 03/14/24 Physician Discharge Instructions: [facility] Human Resources District Manager Call Daxa Membreno RN at [phone] for questions or concerns after discharge. Expect a call within 1-2 business days of discharge. Alternate: Marina Rdz RN at [phone] Alternate: KELTON Smith [phone]. Alternate: KELTON Mayer [phone]. Followup: Mukesh Diallo MD [ASSOCIATE-ACTIVE - CAN ADMIT] - 1 Week (Please arrange for an outpatient colonoscopy with gastroenterology as soon as possible.) Danna Waldrop MD [Primary Care Provider] -
[2025-04-23 16:43] VITALS: BP 157/69; TEMP 98.3
== END 2025-04-23 16:03 | disposition home or self-care (01) | DRG 378 ==
LOC: ER 12:18 → ERHOLD 19:15 → 2ND 20:34
PROVIDERS: ADMIT Family Medicine; ATTEND Internal Medicine
PROC: 30233N1 Transfusion of Nonautologous Red Blood Cells into Peripheral Vein, Percutaneous Approach (ICD-10-PCS; 2025-04-21)
PROC: 0DB78ZX Excision of Stomach, Pylorus, Via Natural or Artificial Opening Endoscopic, Diagnostic (ICD-10-PCS; 2025-04-22)
PROC: 0DB68ZX Excision of Stomach, Via Natural or Artificial Opening Endoscopic, Diagnostic (ICD-10-PCS; principal; 2025-04-22 12:30)
DX: K29.71 Gastritis, unspecified, with bleeding (principal); D62 Acute posthemorrhagic anemia; J33.8 Other polyp of sinus; E66.9 Obesity, unspecified; E87.6 Hypokalemia; E78.00 Pure hypercholesterolemia, unspecified; E83.39 Other disorders of phosphorus metabolism; M19.90 Unspecified osteoarthritis, unspecified site; K44.9 Diaphragmatic hernia without obstruction or gangrene; I12.9 Hypertensive chronic kidney disease with stage 1 through stage 4 chronic kidney disease, or unspecified chronic kidney disease; N18.9 Chronic kidney disease, unspecified; D63.1 Anemia in chronic kidney disease; Z68.29 Body mass index [BMI] 29.0-29.9, adult; Z79.899 Other long term (current) drug therapy; Z96.652 Presence of left artificial knee joint; Z90.710 Acquired absence of both cervix and uterus
CPT/HCPCS: 36415; 71045; 80048; 80053; 80076; 81001; 83690; 83735; 83880; 84100; 84484; 85025; 85610; 86850; 86900; 86901; 86920; 88305; 88312; 93005; 96374; 99285; J0360; J2003; J2470; J2704; J7030; J7040; J7050; P9016

== ENCOUNTER 2025-05-17 11:00 | Emergency (ER) | payer OTHER ==
--- OUTSIDE RECORDS SUMMARY | 2025-05-17 11:05 | XMS REPORT | Continuity of Care Document ---
Author Name Unknown Address [address] [facility] [place] [address] [facility] [place] Address [address] [facility] [place] [address] Care Team Providers [employer] Teammate Name Role Phone Mukesh Stone Primary Care Physician [phone] Maribeth Caal Attending Clinician Unavailable Caesar Newton MD Attending Clinician [phone] KRISTOPHER VELÁZQUEZ Attending Clinician Unavailable RENETTA MEZA Attending Clinician UnavailRENETTA Ko Attending Clinician UnavailKristopher Raygoza MD Attending Clinician [phone] Renetta Meza MD Attending Clinician [phone], [facility] Attending Clinician Unavailable Duane De León Attending Clinician [phone] Doctor Unassigned, [place] Attending Clinician U DUANE Andujar Attending Clinician Unavailable UNKNOWN, ATTENDING Attending Clinician Unavailab Mukesh Harrison Attending Clinician [phone] CHAD MEJIA Attending Clinician Unavailable Chad Mejia MD Attending Clinician [phone] CARIE COY Admitting Clinician Unavailable Payers Payer Name Policy Type Policy Number Effective Date Expirati on Date Source Problems Condition Name Condition Details Condition Category Status Onset Date Resolution Date Last Treatment Date Treating Clinician Comments Source Shortness of breath Shortness of breath Disease Active 08-09 00:00: 00 [facility] Essential hypertensi on Essential hypertensi on Disease Active 08-09 00:00: 00 [facility] Mixed hyperlipid emia Mixed hyperlipid emia Disease Active 08-09 00:00: 00 [facility] Preoperati ve cardiovasc ular examinatio n Preoperati ve cardiovasc ular examinatio n Disease Active 08-07 00:00: 00 [facility] Obesity (BMI 30-39.9) Obesity (BMI 30-39.9) Disease Active 11-01 00:00: 00 [facility] Allergies, Adverse Reactions, Alerts Allergy Name Allergy Type Status Severity Reaction(s) Onset Date Inactive Date Treating Clinician Comments Source NO KNOWN ALLERGIE S Drug Class Active [facility] Social History Social Habit Start Date Stop Date Quantity Comments Source Gender identity [facility] Sexual orientation U [facility] Alcohol intake 2023-08-03 00:00:00 2023-08-03 00:00:00 0 /d [facility] Alcoholic beverage intake 2023-08-03 00:00:00 2023-08-03 00:00:00 0 /d [facility] History of Social function 2023-03-28 00:00:00 2023-03-28 00:00:00 [facility] Exposure to SARS-CoV-2 (event) 2022-12-04 00:00:00 2022-12-14 10:34:00 Not sure [facility] Sex assigned at 1950 00:00:00 1950 00:00:00 [facility] Smoking Status Start Date Stop Date Source Never smoked tobacco [facility] Medications Ordered Medication Name Filled Medication Name Start Date Stop Date Current Medication? Ordering Clinician Indication Dosage Frequency Signature (SIG) Comments Components Source atorvastati n 40 mg tablet 08-09 00:00: 00 Yes [id number] 40mg Take 1 tablet by mouth at bedtime. [facility] losartan 50 mg tablet 08-07 15:37: 14 08-07 00:00 :00 No 50mg Take 1 tablet by mouth in the morning. [facility] losartan-hy drochloroth iazide 100-25 mg per tablet 08-07 15:35: 59 08-07 00:00 :00 No 1{tbl} Take 1 tablet by mouth in the morning. [facility] metoprolol tartrate 50 mg tablet 08-07 15:32: 01 Yes 50mg Take 1 tablet by mouth in the morning. [facility] amLODIPine 5 mg tablet 08-07 15:32: 01 Yes 5mg Take 1 tablet by mouth in the morning and 1 tablet in the evening. [facility] losartan-hy drochloroth iazide 100-25 mg per tablet 08-07 00:00: 00 08-07 05:59 :00 No [id number] 1{tbl} Take 1 tablet by mouth in the morning. [facility] meloxicam 7.5 mg tablet 18 00:00: 00 Yes [id number] 7.5mg Take 1 tablet by mouth in the morning. [facility] methylPREDN ISolone (MEDROL, AWA,) 4 mg tablets 316 00:00: 00 Yes [id number] 9109 84mg Take 21 tablets by mouth SEE-INSTRU CTIONS. follow package directions [facility] sodium hyaluronate (viscosup) (ORTHOVISC) injection 30 mg 11-18 14:30: 00 11-18 14:20 :00 No [id number] 9109 30mg [facility] DULoxetine 60 mg capsule 08-12 09:20: 59 Yes 60mg Take 60 mg by mouth daily. [facility] metoprolol tartrate 50 mg tablet 08-12 09:20: 59 Yes 50mg Take 50 mg by mouth 2 (two) times daily. [facility] omeprazole 40 mg capsule 08-12 09:20: 59 Yes 40mg Take 40 mg by mouth daily. [facility] losartan-hy drochloroth iazide 100-25 mg per tablet 1-14 09:20: 59 Yes 1{tbl} Take 1 tablet by mouth daily. [facility] clorazepate 3.75 mg tablet 11-01 14:16: 52 Yes 3.75mg Take 3.75 mg by mouth every 4 (four) hours as needed. [facility] alendronate 70 mg tablet 11-01 00:00: 00 08-07 00:00 :00 No [id number] 70mg Take 1 tablet by mouth weekly. [facility] Vital Signs Vital Name Observation Time Observation Value Comments S [facility] Systolic blood pressure 2023-08-07 21:03:00 168 mm[Hg] [facility] Diastolic blood pressure 2023-08-07 21:03:00 81 mm[Hg] [facility] Heart rate 2023-08-07 21:03:00 81 /min [facility] Oxygen saturation in Arterial blood by Pulse oximetry 2023-08-07 21:03:00 94 /min [facility] Body temperature 2023-08-07 21:00:00 36.33 Hetal [facility] Respiratory rate 2023-08-07 21:00:00 20 /min [facility] Body height 2023-08-07 21:00:00 162.6 cm [facility] Body weight 2023-08-07 21:00:00 100.699 kg [facility] BMI 2023-08-07 21:00:00 38.11 kg/m2 [facility] Body height 2023-08-03 16:01:00 162.6 cm [facility] Body weight 2023-08-03 16:01:00 105.688 kg [facility] BMI 2023-08-03 16:01:00 39.99 kg/m2 [facility] Systolic blood pressure 2023-03-28 19:29:00 152 mm[Hg] [facility] Diastolic blood pressure 2023-03-28 19:29:00 77 mm[Hg] [facility] Heart rate 2023-03-28 19:28:00 81 /min [facility] Body height 2023-03-28 19:28:00 167.6 cm [facility] Body weight 2023-03-28 19:28:00 102.059 kg [facility] BMI 2023-03-28 19:28:00 36.32 kg/m2 [facility] Oxygen saturation in Arterial blood by Pulse oximetry 2023-03-28 19:28:00 96 /min [facility] Systolic blood pressure 2022-12-14 15:55:00 152 mm[Hg] [facility] Diastolic blood pressure 2022-12-14 15:55:00 72 mm[Hg] [facility] Heart rate 2022-12-14 15:55:00 90 /min [facility] Body height 2022-12-14 15:55:00 167.6 cm [facility] Body weight 2022-12-14 15:55:00 105.235 kg [facility] BMI 2022-12-14 15:55:00 37.45 kg/m2 [facility] Oxygen saturation in Arterial blood by Pulse oximetry 2022-12-14 15:55:00 90 /min [facility] Systolic blood pressure 2022-10-12 16:18:00 133 mm[Hg] [facility] Diastolic blood pressure 2022-10-12 16:18:00 79 mm[Hg] [facility] Heart rate 2022-10-12 16:18:00 84 /min [facility] Body height 2022-10-12 16:18:00 167.6 cm [facility] Body weight 2022-10-12 16:18:00 65.772 kg [facility] BMI 2022-10-12 16:18:00 23.40 kg/m2 [facility] Systolic blood pressure 2021-11-18 14:19:00 151 mm[Hg] [facility] Diastolic blood pressure 2021-11-18 14:19:00 87 mm[Hg] [facility] Heart rate 2021-11-18 14:19:00 77 /min [facility] Body height 2021-11-18 14:10:00 167.6 cm [facility] Body weight 2021-11-18 14:10:00 101.606 kg [facility] BMI 2021-11-18 14:10:00 36.15 kg/m2 [facility] Oxygen saturation in Arterial blood by Pulse oximetry 2021-11-18 14:10:00 95 /min [place] [facility] Procedures Procedure Date / Time Performed Performing Clinician Source TRANSTHORACIC ECHO (TTE) COMPLETE 2023-08-08 17:49:[address] [facility] BASIC METABOLIC PANEL (NA, K, CL, CO2, GLUCOSE, BUN, CREATININE, CA) 2023-08-08 17:44:00 Eber Kristopher [facility] LIPID PANEL ([id number])(TOTAL CHOLESTEROL, TRIGLYCERIDES, HDL) 2023-08-08 17:44:00 Eber Kristopher [facility] CBC WITHOUT DIFF 2023-08-08 17:44:00 [facility] 2023-08-08 17:44:00 Velázquez Kristopher [facility] ASSIGNMENT OF BENEFITS 2022-12-14 15:36:46 Docto r Unassigned, [place] [facility] Encounters Start Date/Time End Date/Time Encounter Type Admission Type Attending Clinicians Care Facility Care Department Encounter ID Source 2024-02-22 11:14:00 Outpatient [facility] [id number] [facility] 2024-02-20 13:39:00 Outpatient TenMaribeth [facility] [id number] [facility] 2024-02-18 09:48:00 Outpatient Maribeth Caal [facility] [id number] [facility] 2023-12-13 14:43:00 Outpatient TenArtemioa [facility] [id number] [facility] 2023-12-11 10:16:00 Outpatient [place], Maribeth [facility] [id number] [facility] 2021-08-24 14:26:43 [facility] [id number] [facility] 2024-02-08 00:00:00 2024-02-15 15:30:06 Telephone Caesar Newton [facility] 1.2.840.114 350.1.13.10 4.2.7.2.686 [id number] [facility] 2023-11-06 10:30:00 2023-11-06 10:30:00 Outpatient KRISTOPHER SIERRA [facility] [id number] [facility] 2023-08-30 11:00:00 2023-08-30 11:00:00 Outpatient RENETTA DANIELS CRAIG [facility] [id number] [facility] 2023-08-17 00:00:00 2023-08-17 00:00:00 Telephone Eber Kristopher [facility] 1.2.840.114 350.1.13.10 4.2.7.2.686 [id number] [facility] 2023-08-16 00:00:00 2023-08-16 00:00:00 Telephone Renetta Meza [facility] 1.2.840.114 350.1.13.10 4.2.7.2.686 [id number] [facility] 2023-08-09 00:00:00 2023-08-09 00:00:00 Telephone Eber [facility] BUILDING 1.2.840.114 350.1.13.10 4.2.7.2.686 [id number] [facility] 2023-08-08 10:57:05 2023-08-08 23:59:00 Outpatient R EBER [facility] [id number] [facility] 2023-08-08 10:57:05 2023-08-08 23:59:00 Hospital Encounter Eber [facility] NAL BUILDING 1.2.840.114 350.1.13.10 4.2.7.2.686 [id number] [facility] 2023-08-08 13:00:00 2023-08-08 13:00:00 Front End Assistant Visit 2, [facility] Eber [facility] NAL BUILDING 1.2.840.114 350.1.13.10 4.2.7.2.686 [id number] [facility] 2023-08-07 15:00:00 2023-08-07 15:46:40 Outpatient R KRISTOPHER VELÁZQUEZ [facility] [id number] [facility] 2023-08-07 15:00:00 2023-08-07 15:46:40 Office Visit Eber [facility] BUILDING 1.2.840.114 350.1.13.10 4.2.7.2.686 [id number] [facility] 2023-08-03 10:15:00 2023-08-03 10:30:03 Outpatient R RENETTA MEZA CRAIG [facility] [id number] [facility] 2023-08-03 10:15:00 2023-08-03 10:30:03 Office Visit Renetta Meza [facility] 1.2.840.114 350.1.13.10 4.2.7.2.686 [id number] [facility] 2023-07-12 13:45:00 2023-07-12 13:45:00 Outpatient R MEZA, RENETTA BURKSONALDRENETTA [facility] [id number] [facility] 2023-03-30 13:00:00 2023-03-30 13:00:00 Outpatient R KRISTOPHER VELÁZQUEZ [facility] [id number] [facility] 2023-03-28 14:15:00 2023-03-28 14:49:19 Outpatient R RENETTA MEZA [facility] [id number] [facility] 2023-03-28 14:15:00 2023-03-28 14:49:19 Office Visit Renetta Meza Ricki [facility] 1.2.840.114 350.1.13.10 4.2.7.2.686 [id number] [facility] 2022-12-14 11:00:00 2022-12-14 11:15:00 Office Visit Duane Starkey Craig [facility]ADR[facility] 1.2.840.114 350.1.13.10 4.2.7.2.686 [id number] [facility] 2022-12-14 11:00:00 2022-12-14 11:00:00 Outpatient R RENETTA MEZA [facility] [id number] [facility] 2022-12-14 00:00:00 2022-12-14 00:00:00 Orders Only Doctor Unassigned, [place] [facility] 1.2.840.114 350.1.13.10 4.2.7.2.686 [id number] [facility] 2022-10-12 11:38:06 2022-10-12 23:59:00 Outpatient R DUANE STARKEY [facility] [id number] [facility] 2022-10-12 11:15:00 2022-10-12 11:30:00 Office Visit Duane Starkey [facility] 1.2.840.114 350.1.13.10 4.2.7.2.686 [id number] [facility] 2022-08-10 10:42:24 2022-08-10 23:59:00 Outpatient R MELODY CARLSON [facility] [id number] [facility] 2022-07-14 00:00:00 2022-07-14 00:00:00 Telephone Renetta [facility] 1.2.840.114 350.1.13.10 4.2.7.2.686 [id number] [facility] 2021-12-16 00:00:00 2021-12-16 00:00:00 Telephone Renetta Meza [facility] [place] 1.2.840.114 350.1.13.10 4.2.7.2.686 [id number] [facility] 2021-12-02 09:15:00 2021-12-02 09:15:00 Outpatient R RENETTA MEZA [facility] [id number] [facility] 2021-11-18 09:15:00 2021-11-18 09:57:53 Outpatient R DUANE STARKEY [facility] [id number] [facility] 2021-11-18 09:15:00 2021-11-18 09:30:00 Office Visit Duane Starkey [facility] 1.2.840.114 350.1.13.10 4.2.7.2.686 [id number] [facility] 2021-11-18 09:15:00 2021-11-18 09:15:00 Outpatient R DUANE STARKEY [facility] [id number] [facility] 2021-11-11 08:45:00 2021-11-11 09:10:58 [facility] 1.2.840.114 350.1.13.10 4.2.7.2.686 [id number] [facility] 2021-11-11 08:45:00 2021-11-11 09:10:58 Outpatient DUANE JULIEN [facility] [id number] [facility] 2021-11-11 08:45:00 2021-11-11 08:45:00 Outpatient Yasmeen STARKEYDUANE [facility] [id number] [facility] 2021-11-03 08:00:00 2021-11-03 08:28:49 Outpatient Yasmeen LALITODUANE [facility] [id number] [facility] 2021-11-03 08:00:00 2021-11-03 08:28:49 Office Visit Lalito [facility] [place] 1.2.840.114 350.1.13.10 4.2.7.2.686 [id number] [facility] 2021-11-03 08:00:00 2021-11-03 08:28:49 Outpatient R STARKEYDUANE [facility] [id number] [facility] 2021-11-01 14:15:00 2021-11-01 14:15:00 Outpatient Yasmeen LALITO DUANE [facility] [id number] [facility] 2021-10-24 00:00:00 2021-10-24 00:00:00 Telephone Lalito [facility] 1.2.840.114 350.1.13.10 4.2.7.2.686 [id number] [facility] 2021-10-24 00:00:00 2021-10-24 00:00:00 [facility] 1.2.840.114 350.1.13.10 4.2.7.2.686 [id number] [facility] 2021-10-12 14:15:00 2021-10-12 14:54:34 Outpatient R RENETTA MEZA [facility] [id number] [facility] 2021-10-12 14:15:00 2021-10-12 14:54:34 Office Visit Renetta Meza [facility] 1.840.114 350.1.13.10 4.2.7.2.686 [id number] [facility] 2021-10-12 00:00:00 2021-10-12 00:00:00 Orders Only Doctor Unassigned, [place] [facility] 1.840.114 350.1.13.10 4.2.7.2.686 [id number] [facility] 2021-08-12 09:30:00 2021-08-12 23:59:00 Outpatient R RENETTA MEZA [facility] [id number] [facility] 2021-08-12 09:30:00 2021-08-12 23:59:00 Hospital Encounter Renetta Meza [facility] 1..840.114 350.1.13.10 4.2.7.2.686 [id number] [facility] 2021-08-12 09:30:00 2021-08-12 09:59:31 Office Visit Renetta Meza [facility] 1.840.114 350.1.13.10 4.2.7.2.686 [id number] [facility] 2021-08-12 09:30:00 2021-08-12 09:30:00 Outpatient R RENETTA MEZA [facility] [id number] [facility] 2021-08-12 00:00:00 2021-08-12 00:00:00 Orders Only Doctor Unassigned, [place] [facility] 1.2.840.114 350.1.13.10 4.2.7.2.686 [id number] [facility] 2021-07-29 00:00:00 2021-07-29 00:00:00 Letter (Out) Mukesh Stone [facility] 1.2.840.114 350.1.13.10 4.2.7.2.686 [id number] [facility] 2021-07-20 00:00:00 2021-07-20 00:00:00 Orders Only Doctor Unassigned, [place] [facility] 1.2.840.114 350.1.13.10 4.2.7.2.686 [id number] [facility] 2019-11-11 09:30:00 2019-11-11 09:30:00 Outpatient R [facility] [id number] [facility] 2019-11-11 07:54:23 2019-11-11 08:24:23 Telemedici ne Visit [facility] 1.2.840.114 350.1.13.10 4.2.7.2.686 [id number] [facility] 2019-11-11 00:00:00 2019-11-11 00:00:00 Telephone [facility] 1.2.840.114 350.1.13.10 4.2.7.2.686 [id number] [facility] Results Test Description Test Time Test Comments Results Result Co mments Source [facility] Notes Date/Time Note Provider Source 2024-02-08 13:13:36 [facility] sent referral to Dr. Newton sent to HIM [facility] 2023-08-17 16:49:00 Images from the original note [...] 11/06/2023, we'll discuss further management after re-evaluation. UTER TERMINAL OPERATOR Tiffany Mcnally RN [facility] 2023-08-17 13:26:54 Bertha Munroe is a 73 year old female Patient returning call to aleks Alonzo advise. UTER TERMINAL OPERATOR Shania Zaidi [facility] 2023-08-17 13:20:25 Images from the original note were not included. Attempted to contact patient with results/recommendations. LV for patient to return call to [phone]. Kristopher Velázquez MD P Cardiology Nurse Please [...] 11/06/2023, we'll discuss further management after re-evaluation. UTER TERMINAL OPERATOR [facility] 2023-08-16 10:10:29 Sent an email to Karrie to let her know she wanted to cancel her surgery at this time. Charlene Farah 08/16/2023 10:10 AM [facility] 2023-08-16 09:21:38 Patient is requesting to cancel her surgery that is scheduled on 08/29/2023. She is not able to do it at this time. [facility] 2023-08-09 10:43:39 Images from the original note were not included. Called patient for results patient verbalized understanding with no further questions will send the atorvastatin to in [place] for the patient. Kristopher Velázquez MD P Cardiology Nurse Please let Ms. Bertha Munroe know that the cholesterol level is elevated. I recommend starting a cholesterol lowering medicine (atorvastatin 40 mg daily). Serum calcium is also elevated (a chronic abnormality), please discuss this finding with your PCP. [facility] 2023-08-08 13:00:00 Images from the original note were not included. Venipuncture collection performed by clean technique on the left anticubitus. Total of 1 attempts were made. Slight pressure and a bandage/dressing were applied to the site(s). The patient experienced no complications. The following specimens were processed according to instructions and sent to [facility] laboratories per lab order on 08/08/2023 : LT BLUE SST 1 RED LAV 1 PPT DK GREEN (LiHep) DK GREEN (SodH) HILL DK BLUE (K2) DK BLUE (S) ACD Blood Culture NIPT/NTD [facility] 2023-08-08 13:00:00 Addended by: KRISTOPHER MORROW on: 08/09/2023 09:21 AM Modules accepted: Orders [facility]
[2025-05-17] MEDS ORDERED: ONDANSETRON 4 MG/2 ML VIAL ONE (11:42)
[2025-05-17] MEDS ORDERED: KETOROLAC 30 MG/ML INJ ONE (11:42)
[2025-05-17] MEDS ORDERED: FENTANYL CITR 100 MCG/2 ML ONE (11:42)
[2025-05-17] MEDS ORDERED: NA CHLORIDE 0.9% 1,000 ML ONE (11:42)
--- NOTE | 2025-05-17 12:24 | RAD REPORT ---
EXAMINATION: CT LUMBAR SPINE WITHOUT CONTRAST CLINICAL INDICATION: Female, 75 years old. Pain;Weakness TECHNIQUE: Axial CT images were obtained through the lumbar spine in soft tissue and bone windows wit hout intravenous contrast. Coronal and Sagittal reformatted images were created from the data set. One or more of the following dose reduction techniques were used: Automated exposure control, adjustm ent of the mA and/ or kV according to patient size, and/or iterative reconstruction. Unless otherwise specified, incidental findings do not require dedicated imaging follow-up. COMPARISON: No prior exam. FINDINGS: For purposes of this dictation, it is assumed that there are 5 non rib-bearing lumbar type vertebrae, and the most caudal fully segmented lumbar vertebra is labeled L5. ALIGNMENT: The lumbar spine demonstrates normal alignment without scoliosis or spondylolisthesis. BONES: Mild superior endplate compression deformity at T12. This appears new since 2007, without rustam cent soft tissue edema. Lumbar vertebral body heights are preserved. No aggressive osseous lesions. Multilevel degenerative changes most notably with facet remodeling at L3-4 through L5-S1. Hemangiomat a within bodies of L2, L3, and L5. DISCS: Intervertebral disc space heights are maintained. LEVELS: No significant spinal canal or neural foraminal stenosis. No visualized abnormality within th e spinal canal. SOFT TISSUE: No soft tissue abnormalities. IMPRESSION: No acute lumbar spine abnormalities. Mild degenerative changes as above.
--- NOTE | 2025-05-17 13:59 | EDPHYS ---
Physician Documentation [facility] Name: Bertha Munroe Age: 75 yrs Sex: Female : 1950 Arrival Date: 05/17/2025 Time: 11:00 Bed 14 Private MD: ED Physician Sami Hassan HPI: 05/17 15:38 This 75 yrs old Female presents to ER via Wheelchair with complaints of Back dr5 Pain, Hip Pain. 15:38 Onset: The symptoms/episode began/occurred 2 day(s) ago. 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 Patient reports that she sleeps on her right side and woke up with pain 2 days ago. Patient denies fall or trauma. Patient denies numbness or tingling to the bilateral lower legs, perirectal numbness, bowel or bladder incontinence, or fever.. Historical: - Allergies: 11:23 No Known Allergies; iw - PMHx: 11:23 Hypertensive disorder; Hypercholesterolemia; iw 11:23 Anemia; iw - Immunization history:: Adult Immunizations up to date. - Infectious Disease History:: Denies. - Social history:: Smoking status: Smoking status: Patient denies any tobacco usage or history of. ROS: 15:38 Constitutional: as per hpi dr5 Exam: 15:38 Constitutional: This is a well developed, well nourished patient who is awake, alert, dr5 and in no acute distress. Head/Face: Normocephalic, atraumatic. Eyes: Pupils equal round and reactive to light, extra-ocular motions intact. Lids and lashes normal. Conjunctiva and sclera are non-icteric and not injected. Cornea within normal limits. Periorbital areas with no swelling, redness, or edema. Chest/axilla: Normal chest wall appearance and motion. Nontender with no deformity. No lesions are appreciated. Cardiovascular: Regular rate and rhythm with a normal S1 and S2. Normal PMI, no JVD. No pulse deficits. Respiratory: Lungs have equal breath sounds bilaterally, clear to auscultation. No rales, rhonchi or wheezes noted. No increased work of breathing, no retractions or nasal flaring. Back: No spinal tenderness. No costovertebral tenderness. Full range of motion. Skin: Warm, dry with normal turgor. Normal color with no rashes, no lesions, and no evidence of cellulitis. MS/ Extremity: Pulses equal, no cyanosis. Neurovascular intact. Full, normal range of motion. Neuro: Awake and alert, GCS 15, oriented to person, place, time, and situation. Cranial nerves II-XII grossly intact. Motor strength 5/5 in all extremities. Sensory grossly intact. Cerebellar exam normal. Normal gait. 15:41 Neuro: Exam negative for acute changes, Orientation: is normal, appropriate for stated dr5 age, Vital Signs: 11:21 BP 147 / 73; Pulse 106; Resp 16; Temp 97.7; Pulse Ox 96% ; Weight 83.01 kg; Height 5 iw ft. 6 in. ; Pain 10/10; 12:30 BP 126 / 64; Pulse 93; Resp 18; Pulse Ox 96% on R/A; ap3 14:09 BP 142 / 77; Pulse 87; Resp 18; Pulse Ox 98% on R/A; ap3 11:21 Body Mass Index 29.54 (83.01 kg, 167.64 cm) iw 11:21 Pain Scale: Adult iw MDM: 11:18 Medical Screening Exam initiated dr5 15:38 Differential diagnosis: arthritis, sprain, vertebral fracture, Sciatic nerve pain. Data dr5 reviewed: vital signs, nurses notes, radiologic studies, CT scan. Consideration of Admission/Observation Escalation of care including admission/observation considered. Escalation considered patient found to have cauda equina on CT. I considered the following discharge prescriptions or medication management in the emergency department I discussed and recommended Over The Counter medications, Medications were administered in the Emergency Department. See MAR. Historians other than the Patient: Daughter/Son: Son. Care significantly affected by the following chronic conditions: Hypertension, Hyperlipidemia, anemia. Care significantly affected by the following Social Determinants of Health: Poor access to healthcare and/or lack of insurance, Poor access to transportation, Problems related to employment. Counseling: I had a detailed discussion with the patient and/or guardian regarding the historical points, exam findings, and any diagnostic results supporting the discharge/admit diagnosis, the presence of at least one elevated blood pressure reading (>120/80) during this emergency department visit, radiology results, the need for outpatient follow up, for definitive care, a family practitioner, to return to the emergency department if symptoms worsen or persist or if there are any questions or concerns that arise at home. Medication response: Fentanyl, Zofran, Toradol. Response to treatment: the patient's symptoms have resolved after treatment. Special discussion: I discussed with the patient/guardian in detail that at this point there is no indication for admission to the hospital. It is understood, however, that if the symptoms persist or worsen the patient needs to return immediately for re-evaluation. Based on the history and exam findings, there is no indication for further emergent testing or inpatient evaluation. I discussed with the patient/guardian the need to see the orthopedic surgeon for further evaluation of the symptoms. I discussed with the patient/guardian the need to see the primary care provider for further evaluation of the symptoms. ED course: Likely sciatic nerve pain versus musculoskeletal pain. CT scan was unremarkable for acute abnormality. Patient ambulatory with steady gait. All questions answered. Strict ER precautions given. Will give patient medications to trial at home.. 05/17 11:36 Order name: CT Lumbar Spine Wo Con; Complete Time: 12:53 dr5 05/17 11:37 Order name: IV Start; Complete Time: 11:46 dr5 Administered Medications: 11:46 Drug: Ondansetron IVP 4 mg IVP once; over 2 minutes Route: IVP; Site: right antecubital;hb 12:27 Follow up: Response: No adverse reaction ap3 11:47 Drug: NS 0.9% IV 1000 ml IV at 1000 ml once; to be given as a bolus over 60 minutes hb Route: IV; Rate: 1000 ml; Site: right antecubital; 14:15 Follow up: IV Status: Completed infusion; IV Intake: 1000ml ap3 11:47 Drug: fentaNYL (PF) IVP 50 mcg IVP once Route: IVP; Site: right antecubital; hb 12:28 Follow up: Response: No adverse reaction; Pain is decreased; RASS: Alert and Calm (0) ap3 11:47 Drug: Ketorolac IVP 15 mg IVP once Route: IVP; Site: right antecubital; hb 12:28 Follow up: Response: No adverse reaction; Pain is decreased ap3 Disposition Summary: 05/17/25 13:58 Discharge Ordered Notes: Location: Home dr5 Condition: Stable dr5 Diagnosis - Low back pain dr5 Followup: dr5 - With: Emergency Department - When: As needed - Reason: Worsening of condition Followup: dr5 - With: Private Physician - When: 1 - 2 days - Reason: Recheck today's complaints, Continuance of care, Re-evaluation by your physician Discharge Instructions: - Discharge Summary Sheet dr5 - Acute Back Pain, Adult dr5 Forms: - Medication Reconciliation Form dr5 - Antibiotic Education dr5 - Patient Portal Instructions dr5 - Leadership Thank You Letter dr5 Prescriptions: - Ibuprofen 800 mg Oral Tablet - take 1 tablet ORAL route every 12 hours As needed take with food; 20 tablet; dr5 Refills: 0, Product Selection Permitted - Medrol (Kayden) 4 mg Oral Tablets, Dose Pack - take 1 tablet ORAL route as directed - follow package instructions; 1 packet; dr5 Refills: 0, Product Selection Permitted - methocarbamol 750 mg Oral tablet - take 1 tablet ORAL route 3 times per day As needed; 20 tablet; Refills: 0, dr5 Product Selection Permitted Signatures: Dispatcher [employer] Brittney Swain, Breanna Liao RN, RN RN hb Rhodes, Dustin, PERFORMANCE IMPROVEMENT COORDINATOR-C PERFORMANCE IMPROVEMENT COORDINATOR-Cdr5 Linda Correa RN ap3
--- NOTE | 2025-05-17 13:59 | ER ---
Nurse's Notes [facility] Name: Bertha Munroe Age: 75 yrs Sex: Female : 1950 Arrival Date: 05/17/2025 Time: 11:00 Bed 14 Private MD: Diagnosis: Low back pain Presentation: 05/17 11:21 Chief complaint: Patient states: tried to get up Nas[place] morning and had pain on right iw side from hip into lower back , cannot walk without using her walker. Coronavirus screen: At this time, the client does not indicate any symptoms associated with coronavirus-19. 11:21 Method Of Arrival: Wheelchair iw 11:22 Ebola Screen: No symptoms or risks identified at this time. Initial Sepsis Screen: Does iw the patient meet any 2 criteria? No. Patient's initial sepsis screen is negative. Does the patient have a suspected source of infection? No. Patient's initial sepsis screen is negative. Risk Assessment: Do you want to hurt yourself or someone else? Patient reports no desire to harm self or others. Onset of symptoms was May 15, 2025. 11:22 Acuity: HA 3 iw Historical: - Allergies: 11:23 No Known Allergies; iw - PMHx: 11:23 Hypertensive disorder; Hypercholesterolemia; iw 11:23 Anemia; iw - Immunization history:: Adult Immunizations up to date. - Infectious Disease History:: Denies. - Social history:: Smoking status: Smoking status: Patient denies any tobacco usage or history of. Screenin:28 [facility] ED Fall Risk Assessment (Adult) History of falling in the last 3 months, ap3 including since admission No falls in past 3 months (0 pts) Confusion or Disorientation No (0 pts) Intoxicated or Sedated No (0 pts) Impaired Gait No (0 pts) Mobility Assist Device Used No (0 pt) Altered Elimination No (0 pt) Score/Fall Risk Level 0 - 2 = Low Risk Oriented to surroundings, Maintained a safe environment, Educated pt \T\ family on fall prevention, incl call for assistance when getting out of bed, Assessed \T\ reinforced patient's understanding of fall precautions, Hourly rounding (assess needs \T\ fall precautionary measures) done, Used ambulatory aids as needed (educated on \T\ assisted with). Abuse screen: Denies threats or abuse. Nutritional screening: No deficits noted. Tuberculosis screening: No symptoms or risk factors identified. Assessment: 11:47 General: Appears in no apparent distress. uncomfortable, Behavior is calm, cooperative. hb Pain: Pain currently is 10 out of 10 on a pain scale. Neuro: Level of Consciousness is awake, alert, obeys commands, Oriented to person, place, time, situation. Cardiovascular: Patient's skin is warm and dry. Respiratory: Respiratory effort is even, unlabored, Respiratory pattern is regular, symmetrical. GI: No signs and/or symptoms were reported involving the gastrointestinal system. : No signs and/or symptoms were reported regarding the genitourinary system. EENT: No signs and/or symptoms were reported regarding the EENT system. Derm: Skin is pink, warm \T\ dry. Musculoskeletal: Reports right hip pain that radiates to low back. 12:29 Reassessment: Patient and/or family updated on plan of care and expected duration. Pain ap3 level reassessed. Patient is alert, oriented x 3, equal unlabored respirations, skin warm/dry/pink. Patient states feeling better. Patient states symptoms have improved. Vital Signs: 11:21 BP 147 / 73; Pulse 106; Resp 16; Temp 97.7; Pulse Ox 96% ; Weight 83.01 kg; Height 5 iw ft. 6 in. ; Pain 10/10; 12:30 BP 126 / 64; Pulse 93; Resp 18; Pulse Ox 96% on R/A; ap3 14:09 BP 142 / 77; Pulse 87; Resp 18; Pulse Ox 98% on R/A; ap3 11:21 Body Mass Index 29.54 (83.01 kg, 167.64 cm) iw 11:21 Pain Scale: Adult iw ED Course: 11:05 Patient arrived in ED. cj3 11:18 Beto Lawler FNP-C [facility]5 11:18 Sami Hassan MD is Attending Physician. dr5 11:22 Triage completed. iw 11:24 Arm band placed on. iw 11:39 Linda Correa, BHUPINDER is Primary Nurse. ap3 11:48 Inserted saline lock: 22 gauge in right antecubital area, using aseptic technique. ap3 Flushed with 10 mL NS. 11:59 CT Lumbar Spine Wo Con In Process Unspecified. EDMS 12:28 Patient has correct armband on for positive identification. Provided Education on: ap3 medication prior to administration . 14:14 No provider procedures requiring assistance completed. IV discontinued, intact, ap3 bleeding controlled, No redness/swelling at site. Pressure dressing applied. Administered Medications: 11:46 Drug: Ondansetron IVP 4 mg IVP once; over 2 minutes Route: IVP; Site: right antecubital;hb 12:27 Follow up: Response: No adverse reaction ap3 11:47 Drug: NS 0.9% IV 1000 ml IV at 1000 ml once; to be given as a bolus over 60 minutes hb Route: IV; Rate: 1000 ml; Site: right antecubital; 14:15 Follow up: IV Status: Completed infusion; IV Intake: 1000ml ap3 11:47 Drug: fentaNYL (PF) IVP 50 mcg IVP once Route: IVP; Site: right antecubital; hb 12:28 Follow up: Response: No adverse reaction; Pain is decreased; RASS: Alert and Calm (0) ap3 11:47 Drug: Ketorolac IVP 15 mg IVP once Route: IVP; Site: right antecubital; hb 12:28 Follow up: Response: No adverse reaction; Pain is decreased ap3 Medication: 12:28 VIS not applicable for this client. ap3 Intake: 14:15 IV: 1000ml; Total: 1000ml. ap3 Outcome: 13:58 Discharge ordered by MD. dr5 14:15 Discharged to home via wheelchair, with family, ap3 14:15 Condition: good 14:15 Discharge instructions given to patient, family, Instructed on discharge instructions, follow up and referral plans. medication usage, Demonstrated understanding of instructions, follow-up care, medications, Prescriptions given X 3, 14:15 Patient left the ED. ap3 Signatures: Dispatcher [employer] EDMS Brittney Grady RN RN Breanna Carter RN RN hb Prokisch, Amanda, RN RN ap3 Beto Lawler, MAKENZIE-C WATCHER LOOKOUT TOWER-5 Margarita Andrews 3 Corrections: (The following items were deleted from the chart) 11:22 11:21 Chief complaint: Patient states: tried to get up Sunday morning and had pain on iw right side from hip into lower back iw 11:23 11:21 Resp 16bpm; Pulse Ox 96%; Temp 97.7F; iw iw 11:49 11:47 Neuro: Level of Consciousness is awake, alert, obeys commands, Oriented to hb person, place, time, situation, 11:47 Musculoskeletal: Reports low back pain that radiates to hip hb hb
[2025-05-17 16:18] VITALS: TEMP 97.7
[2025-05-17 16:20] VITALS: BP 142/77; O2SAT 98
== END 2025-05-17 14:15 | disposition home or self-care (01) ==
LOC: ER 11:00
DX: M54.50 Low back pain, unspecified (principal); M25.551 Pain in right hip
CPT/HCPCS: 96361; 72131; 96375; 96374; 99284; J1885; J3010; J2405; J7030